=== PATIENT | female | born 1980 | race Caucasian/White ===

== ENCOUNTER → 2020-01-29 08:33 | Outpatient (BNVA) | payer OTHER, SELFPAY | PROVIDERS: Visit Provider Physician Assistant | DX: Z76.89 Persons encountering health services in other specified circumstances (principal) ==

== ENCOUNTER 2020-02-20 10:43 | Day surgery (SDC) | payer OTHER, SELFPAY ==
[2020-02-11 13:07] VITALS: BMI 29.9
--- NOTE | 2020-02-18 11:57 | HO.ANESPROP2 ---
Documented by User: Yumiko Milena 02/18/20 11:59 HPI - Anesthesia Eval Consult details Narrative: 39yo F for Upper Endoscopy [facility] Past Medical History Medical History Chronic fatigue GERD (gastroesophageal reflux disease) Moderate asthma Polyarthralgia Restless leg syndrome Vertigo Family History Family History Paternal Grandfather Colon cancer Paternal Aunt Breast cancer Father No problems noted. Mother No problems noted. Surgical History Surgical History History of section History of tubal ligation Social History Social History Household Members: Spouse and Children Alcohol intake: never Smoking Status: Never smoker Use of substances other than those prescribed or required for medical reasons: No Advance Directives: No Advance Directives Information Provided: No Advance Directives on File: No Meds Allergies Allergy/AdvReac Type Severity Reaction Status Date / Time mustard [MUSTARD*] Allergy Severe PT USES Verified 12/19/19 09:24 EPI PEN seafood Allergy Unknown swollen Verified 12/19/19 09:24 throat SEASONAL ALLERGIES Allergy Severe USES EPI Uncoded 12/19/19 09:24 PEN Home Medications Medication Instructions Recorded Confirmed Type albuterol sulfate mg INHALATION 12/19/19 01/29/20 History epinephrine 0.3 mg/0.3 mL 0.3 mg IM DIRECTED PRN 12/19/19 02/11/20 History injection, auto-injector albuterol sulfate 1 PO Q4H 02/11/20 02/11/20 History Exam Exam Date and Time: February 18, 2020 1157 Height,Weight and Vital Signs: Height 5 ft Weight 69.4 kg Assessment and Plan Assessment Anesthesia Assessment: Chart Reviewed Documented by User: Tha Miller MD 02/20/20 11:30 [facility] Past Medical History Medical History Chronic fatigue GERD (gastroesophageal reflux disease) Moderate asthma Polyarthralgia Restless leg syndrome Vertigo Family History Family History Paternal Grandfather Colon cancer Paternal Aunt Breast cancer Father No problems noted. Mother No problems noted. Surgical History Surgical History History of section History of tubal ligation Social History Social History Household Members: Spouse and Children Alcohol intake: never Smoking Status: Never smoker Use of substances other than those prescribed or required for medical reasons: No Advance Directives: No Advance Directives Information Provided: No Advance Directives on File: No Meds Allergies Allergy/AdvReac Type Severity Reaction Status Date / Time mustard [MUSTARD*] Allergy Severe PT USES Verified 12/19/19 09:24 EPI PEN seafood Allergy Unknown swollen Verified 12/19/19 09:24 throat SEASONAL ALLERGIES Allergy Severe USES EPI Uncoded 12/19/19 09:24 PEN Home Medications Medication Instructions Recorded Confirmed Type albuterol sulfate mg INHALATION 12/19/19 01/29/20 History epinephrine 0.3 mg/0.3 mL 0.3 mg IM DIRECTED PRN 12/19/19 02/11/20 History injection, auto-injector albuterol sulfate 1 PO Q4H 02/11/20 02/11/20 History Exam Airway Mallampati Class: I TM Dist: >3cm Neck ROM: Full Loose/Missing/Broken Teeth: No Heart: RRR Lungs: NL Other: AO Assessment and Plan Assessment Anesthesia Assessment: Anesthesia Plan Discussed and Chart Reviewed Final Anesthetic Review NPO: Yes ASA Class: II Final Preanesthetic Review: No Changes in Pt Med Stat, Meds/Allgs Chart Reviewed, Consent Obtained/Reviewed and Anes Risks/Benef Reviewed Patient Risk: Intermediate Procedure Risk: Low Anesthetic Plan Anesthetic Plan: MAC: Disposition: Standard PACU
[2020-02-20 11:20] VITALS: BP 141/91; PULSE 100; RESP 18; TEMP 36.2; O2SAT 98
[2020-02-20] MEDS: Lactated Ringers 1,000 ML 100 ML IVCONT (11:22)
--- NOTE | 2020-02-20 11:22 | MHC.SHP ---
Pre-Procedural Eval Section B Chief Complaint: Gerd Relevant Family History (Specify if Yes): No Relevant Social History: None Present Medications: see Short Stay Collaborative assessment Medical History: Significant History (Chronic fatigue GERD (gastroesophageal reflux disease) Moderate asthma Polyarthralgia Restless leg syndrome Vertigo) History of Previous Operations: Relevant previous surgery/procedure and date(s) (c section, tubal ligation) Allergies: Allergies Allergy/AdvReac Type Severity Reaction Status Date / Time mustard [MUSTARD*] Allergy Severe PT USES Verified 12/19/19 09:24 EPI PEN seafood Allergy Unknown swollen Verified 12/19/19 09:24 throat SEASONAL ALLERGIES Allergy Severe USES EPI Uncoded 12/19/19 09:24 PEN Review of Systems Sugical H&P ROS: Negative: Constitution, Cardiovascular, Respiratory, Neurological, Psychiatric, Hem-Onc, Allergic/Immunologic, Gastrointestinal, Genitourinary, Musculoskeletal, Integumentary, Endocrine and Eyes/Ears/Nose/Throat Exam Surgical H&P Exam: Normal: HEENT, Normal: Heart, Normal: Lungs, Normal: Extremities, Normal: Abdomen, Normal: Skin and Normal: Neurological Plan Diagnosis/Plan: Unchanged I have reviewed the history and physical and performed a pertinent physical examination on my patient. No changes have occurred unless specified.
--- NOTE | 2020-02-20 11:23 | P.BOP_ITS ---
Brief Operative Note Date of Service: 02/20/20 Pre-op diagnosis: GERD Post-op diagnosis: same Procedure: Procedure Description: EGD FLEXIBLE TRANSORAL UPPER GASTROINTESTINAL ENDOSCOPY UPPER ENDOSCOPY Consent: Indications for the procedure and potential complications of bleeding, perforation, reaction to medications and missed diagnosis were discussed with the patient and informed consent was obtained. Instrument: Olympus GIF H 190 J mid size upper endoscope Monitoring: Vital signs and clinical assessment, continuous EKG monitoring, Pulse oximetry, Carbon Dioxide monitoring and blood pressure monitoring were done throughout the procedure. Procedure: The patient was placed in the left lateral decubitis position and pre-procedure medications were administered and a bite block was placed. The endoscope was inserted into the mouth and advanced under direct vision to the third part of duodenum. A careful inspection was made as the upper endoscope was withdrawn including a retroflexed examination of the proximal stomach; Findings and interventions are described below. Findings: Larynx:normal Esophagus: GE junction at 38 cm, diaphragm hiatus at 38 cm, no varices or esoph agitis. Esophageal inlet patch noted measuring about 1 cm in proximal esophagus, bx taken from GEJ and random esophagus Stomach: Patchy gastric erythema. Biopsies were obtained. Grade 2 flap valve on retroflexed examination of the cardia. Duodenum: Normal bulb and descending duodenum, bx taken Intervention: Biopsies as noted above Impression/Findings: gastritis PLAN: Await path, if H pylori pos then treat there was also a paucity of gastric movement, might need GES if sx persist and path is negative Surgeon: Yon Pitts MD Anesthesia: MAC Estimated blood loss (mL): 0 Condition: stable Disposition: PACU
[2020-02-20 11:27] VITALS: BMI 29.2
[2020-02-20 11:59] VITALS: BP 98/57; PULSE 111; RESP 16; TEMP 35.8; O2SAT 99
[2020-02-20 12:14] VITALS: BP 126/81; PULSE 111; RESP 16; TEMP 35.8; O2SAT 97
--- NOTE | 2020-02-20 12:54 | HO.POSTANES ---
Post Anesthesia Evaluation Post Anesthesia Evaluation Vital Signs: Vital Signs Temp Pulse Resp BP Pulse Ox 02/20/20 12:14 96.4 F L 111 H 16 126/81 97 02/20/20 11:59 96.4 F L 111 H 16 98/57 L 99 02/20/20 11:20 97.1 F 100 18 141/91 H 98 Anesthesia: Monitored Mental Status: Awake Pain Control: Satisfactory Nausea/Vomiting: None Hydration: Adequate Anesthesia-Related Issues: No Anes. Related Issues
== END 2020-02-20 13:09 ==
LOC: HO.SSS 10:44
PROVIDERS: PCP Internal Medicine; Visit Provider Internal Medicine Gastroenterology
PROC: 0DJ08ZZ Inspection of Upper Intestinal Tract, Via Natural or Artificial Opening Endoscopic (ICD-10-PCS; CPT 43235; principal; 2020-02-20 12:10)
DX: K21.9 Gastro-esophageal reflux disease without esophagitis (principal); K29.50 Unspecified chronic gastritis without bleeding; Q39.8 Other congenital malformations of esophagus; K44.9 Diaphragmatic hernia without obstruction or gangrene; J45.909 Unspecified asthma, uncomplicated; R53.82 Chronic fatigue, unspecified; Z79.899 Other long term (current) drug therapy
CPT/HCPCS: 43239; 88305; 88342; J3010

== ENCOUNTER 2020-02-26 10:36 | Outpatient (REF) | payer OTHER, SELFPAY ==
[2020-02-26 11:59] LABS: MANUAL DIFF FLAG NO
[2020-02-26 12:07] LABS: Basophils Percent Auto 0.5 % (0-2); Eosinophils Absolute Auto 0.1 X10*3/uL (0.0-0.4); Eosinophils Percent Auto 1.8 % (0-4); Hematocrit 42.7 % (37-47); Imm Gran Abs Auto 0.01 X10*3/uL (0.00-0.03); Imm Gran Pct Auto 0.2 % (0.0-0.4); Lymphocytes Percent Auto 29.7 % (20-40); Mean Corpuscular HGB Conc 32.8 g/dl (31.0-35.0); Mean Corpuscular Hemoglobin 29.8 pg (27.0-33.0); Mean Corpuscular Volume 90.9 fL (80-98); Mean Platelet Volume 10.5 fL (9.4-12.3); Monocytes Absolute Auto 0.5 X10*3/uL (0.1-1.2); Monocytes Percent Auto 7.1 % (2-11); Neutrophils Percent Auto 60.7 % (45-73); Platelet Count 248 X10*3/uL (160-400); Red Cell Distribution Width 12.6 % (11.0-16.0); White Blood Count 6.6 X10*3/uL (4.8-10.8)
[2020-02-26 12:38] LABS: Alanine Aminotransferase 20 U/L (0-31); Albumin Level 4.4 g/dL (3.5-5.0); Alkaline Phosphatase 87 U/L (39-117); Anion Gap 13 (12-20); Aspartate Amino Transferase 18 U/L (5-31); Bilirubin Total 0.2 mg/dL (0.0-1.0); Blood Urea Nitrogen 10 mg/dL (9-16); Calcium 9.2 mg/dL (8.4-10.2); Carbon Dioxide 25 mmol/L (22-29); Chloride 106 mmol/L (96-108); Estimated Glomerular Filt Rate > 60; Glucose Random 99 mg/dL (60-115); Potassium 5.1 mmol/l (3.3-5.1); Sodium 139 mmol/L (135-145); Total Protein 7.5 g/dL (6.5-8.0)
[2020-02-26 12:45] LABS: HCG Quantitative < 2 mIU/mL
== END 2020-02-26 10:37 | disposition home or self-care (01) ==
LOC: HO.LAB 10:36
PROVIDERS: Physician Assistant; Absent Provider Internal Medicine; PCP Internal Medicine; Visit Provider Internal Medicine Cardiovascular Disease
DX: R07.89 Other chest pain (principal); R00.2 Palpitations; I49.1 Atrial premature depolarization; R10.11 Right upper quadrant pain; K21.9 Gastro-esophageal reflux disease without esophagitis; R06.02 Shortness of breath
CPT/HCPCS: 36415; 80053; 84702; 85025; 93005; 99202

== ENCOUNTER → 2020-03-04 11:53 | Outpatient (BNVA) | payer OTHER, SELFPAY | PROVIDERS: PCP Internal Medicine; Visit Provider Physician Assistant | DX: Z76.89 Persons encountering health services in other specified circumstances (principal) ==

== ENCOUNTER → 2020-04-13 07:51 | Outpatient (REF) | payer OTHER, SELFPAY ==
--- NOTE | ~2020-04-13 | NM_ITS ---
EXAMINATION: VT RADIONUCLIDE SOLID FOOD GASTRIC EMPTYING 4-HOUR STUDY CLINICAL INFORMATION: Gastroesophageal reflux disease without esophagitis. COMPARISON: None TECHNIQUE: A standard meal consisting of 4 oz of Egg Beaters brand tagged with 0.87 millicuries of Tc-99m Sulfur Colloid, 8 oz water and 2 slices of toast with jelly was administered orally to the patient. Images were obtained using a dual head gamma camera in the anterior and posterior projections over of the stomach immediately post ingestion and at hourly intervals up to 4 hours post ingestion. The anterior and posterior counts at each time interval were averaged using the geometric mean and expressed as percentage of the immediate post ingestion counts. FINDINGS: There is good visualization of activity in the stomach immediately post ingestion. As the study progresses, there is good clearance of activity from the stomach and visualization of progressively increasing small bowel activity. By the end of the study, there is almost no retention noted in the stomach. Retention in the stomach at each time interval was: 1 hour 76% (normal 37%-90%) 2 hours 45% (normal 30%-60%) 3 hours 13% 4 hours 4% (normal 0%-10%) VT/VT gastric emptying study IMPRESSION: Normal 4-hour solid food gastric emptying study.
== END ==
LOC: HO.NUCMED 07:51
PROVIDERS: PCP Internal Medicine; Visit Provider Physician Assistant
DX: K21.9 Gastro-esophageal reflux disease without esophagitis (principal)
CPT/HCPCS: 78264; A9541

== ENCOUNTER 2020-04-16 11:22 | Outpatient (REF) | payer OTHER, SELFPAY ==
--- NOTE | ~2020-04-16 | XR_ITS ---
EXAMINATION: XR FOOT, BILATERAL CLINICAL INFORMATION: Pain. COMPARISON: 08/16/2016 TECHNIQUE: Bilateral feet each 3 views. FINDINGS: In bilateral feet, there is normal bone mineralization. No apparent significant arthropathy. No fracture or malalignment. No erosions. No abnormal soft tissue calcification. Small bilateral calcaneal spurs. XR/XR foot RT min 3V IMPRESSION: Small bilateral plantar calcaneal spurring.
--- NOTE | ~2020-04-16 | XR_ITS ---
EXAMINATION: XR HAND, BILATERAL CLINICAL INFORMATION: Pain. COMPARISON: 08/16/2016 TECHNIQUE: Each 3 views. FINDINGS: In bilateral hands, there is normal bone mineralization. No apparent significant arthropathy. Joint spaces are maintained. No erosions or abnormal soft tissue calcification. XR/XR hand RT min 3V IMPRESSION: No significant osseous abnormality.
--- NOTE | ~2020-04-16 | XR_ITS ---
EXAMINATION: XR HAND, BILATERAL CLINICAL INFORMATION: Pain. COMPARISON: 08/16/2016 TECHNIQUE: Each 3 views. FINDINGS: In bilateral hands, there is normal bone mineralization. No apparent significant arthropathy. Joint spaces are maintained. No erosions or abnormal soft tissue calcification. XR/XR hand LT min 3V IMPRESSION: No significant osseous abnormality.
--- NOTE | ~2020-04-16 | XR_ITS ---
EXAMINATION: XR FOOT, BILATERAL CLINICAL INFORMATION: Pain. COMPARISON: 08/16/2016 TECHNIQUE: Bilateral feet each 3 views. FINDINGS: In bilateral feet, there is normal bone mineralization. No apparent significant arthropathy. No fracture or malalignment. No erosions. No abnormal soft tissue calcification. Small bilateral calcaneal spurs. XR/XR foot LT min 3V IMPRESSION: Small bilateral plantar calcaneal spurring.
[2020-04-16 13:01] LABS: MANUAL DIFF FLAG NO
[2020-04-16 13:09] LABS: Basophils Percent Auto 0.3 % (0-2); Eosinophils Absolute Auto 0.1 X10*3/uL (0.0-0.4); Eosinophils Percent Auto 2.2 % (0-4); Hematocrit 42.9 % (37-47); Hemoglobin 14.4 g/dl (12.0-16.0); Imm Gran Abs Auto 0.01 X10*3/uL (0.00-0.03); Imm Gran Pct Auto 0.3 % (0.0-0.4); Lymphocytes Absolute Auto 1.5 X10*3/uL (1.2-4.9); Lymphocytes Percent Auto 45.2 % (20-40); Mean Corpuscular HGB Conc 33.6 g/dl (31.0-35.0); Mean Corpuscular Hemoglobin 30.2 pg (27.0-33.0); Mean Corpuscular Volume 89.9 fL (80-98); Mean Platelet Volume 10.6 fL (9.4-12.3); Monocytes Absolute Auto 0.4 X10*3/uL (0.1-1.2); Monocytes Percent Auto 12.1 % (2-11); Neutrophils Absolute Auto 1.3 X10*3/uL (2.0-8.3); Neutrophils Percent Auto 39.9 % (45-73); Platelet Count 224 X10*3/uL (160-400); Red Blood Count 4.77 X10*6/uL (4.20-5.50); Red Cell Distribution Width 12.7 % (11.0-16.0); White Blood Count 3.2 X10*3/uL (4.8-10.8)
[2020-04-16 13:38] LABS: Albumin Level 4.3 g/dL (3.5-5.0); Anion Gap 13 (12-20); Aspartate Amino Transferase 36 U/L (5-31); Bilirubin Total 0.5 mg/dL (0.0-1.0); Blood Urea Nitrogen 7 mg/dL (9-16); Calcium 9.1 mg/dL (8.4-10.2); Carbon Dioxide 26 mmol/L (22-29); Chloride 106 mmol/L (96-108); Estimated Glomerular Filt Rate > 60; Glucose Random 87 mg/dL (60-115); Potassium 4.2 mmol/L (3.3-5.1); Sodium 141 mmol/L (135-145); Total Protein 7.6 g/dL (6.5-8.0)
[2020-04-16 13:50] LABS: Thyroid Stimulating Hormone 0.58 uIU/mL (0.32-4.0)
[2020-04-16 13:58] LABS: Erythrocyte Sedimentation Rate 10 MM/HR (0-20)
[2020-04-16 14:03] LABS: Alanine Aminotransferase 35 U/L (0-31); Alkaline Phosphatase 95 U/L (39-117); C Reactive Protein 0.85 mg/dL (< or = 0.50)
[2020-04-16 14:06] LABS: Glucose Urine UA NEG (NEG); Leukocyte Esterase Urine NEG (NEG); Nitrite Urine NEG (NEG); Urine Blood TRACE (NEG); Urine Ketones NEG (NEG); Urine Protein NEG (NEG-TRACE)
[2020-04-16 14:18] LABS: Appearance Urine HAZY; Color Urine YELLOW
[2020-04-16 14:23] LABS: RBC Urine 0-2 /HPF (0); Squamous Epithelial Cell Urine 1+ /LPF; WBC Urine 0-2 /HPF (0-4)
[2020-04-16 14:24] LABS: Bacteria Urine 2+ /LPF; Mucus Urine 1+ /LPF
[2020-04-17 06:06] LABS: Thyroglobulin Antibodies <1 IU/mL (< or = 1); Thyroid Peroxidase Antibodies <1 IU/mL (<9)
[2020-04-17 12:52] LABS: Anti DNA DS Antibody <1 IU/mL; Antibody to SS-A Antigen <1.0 NEG AI (<1.0 NEG); Antibody to SS-B Antigen <1.0 NEG AI (<1.0 NEG); Scleroderma 70 Antibody <1.0 NEG AI (<1.0 NEG)
[2020-04-18 14:32] LABS: Complement C3 112 mg/dL (83-193)
== END 2020-04-16 11:23 | disposition home or self-care (01) ==
LOC: HO.LAB 11:22
PROVIDERS: PCP Internal Medicine; Visit Provider Student in an Organized Health Care Education/Training Program
DX: M25.50 Pain in unspecified joint (principal); M79.10 Myalgia, unspecified site; R76.8 Other specified abnormal immunological findings in serum; Z79.899 Other long term (current) drug therapy
CPT/HCPCS: 36415; 73130; 73630; 80053; 81001; 84443; 85025; 85652; 86140; 86160; 86225; 86235; 86376; 86800; 99202

== ENCOUNTER 2020-04-22 10:44 | Outpatient (REF) | payer OTHER, SELFPAY | END 2020-04-22 10:45 | disposition home or self-care (01) | LOC: HO.LAB 10:44 | PROVIDERS: Visit Provider Internal Medicine | DX: Z20.822 Contact with and (suspected) exposure to COVID-19 (principal) | CPT/HCPCS: 36415; C9803; U0003; U0005 ==

== ENCOUNTER 2020-05-01 13:09 | Outpatient (REF) | payer OTHER, SELFPAY | END 2020-05-01 13:10 | disposition home or self-care (01) | LOC: HO.LAB 13:09 | PROVIDERS: Visit Provider Internal Medicine | DX: Z20.822 Contact with and (suspected) exposure to COVID-19 (principal) | CPT/HCPCS: 36415; C9803; U0003; U0005 ==

== ENCOUNTER → 2020-05-05 08:10 | Outpatient (REF) | payer OTHER, SELFPAY ==
--- NOTE | 2020-05-05 08:12 | CA_ITS ---
Acquisition Time: 2020-05-05 09:17:20 Total Exercise Time: 00:05:09 Test Indications: Dyspnea Medications: ALBUTEROL MECLIZINE OMEPRAZOLE SINGULAIR CARAFATE Protocol: UTE Max HR: 164 BPM 91% of Pred: 180 BPM Max BP: 134/080 mmHG Max Work Load: 7.0 METS Exercise stress test using Ute protocol, total of 5 min 9 sec. Pt beacame fatigued and dizzy and test terminated. METS 7.0 and TAPHR up to 91 %. EKG with PAC's, flatten T waves laterally and anteriorly after exercise in recovery. Pt reported pinching like chest discomfort at peak exercise that resolved in recovery. Normotensive response to exercise. Test reviewed with Dr. Urrutia. EKG in recovery shows irregular rhythm with this appearing P-waves, patient feeling dizzy patient has Holter ordered, will be applied today Referred By: Kameron Urrutia Overread By: Jemima Hendrix NP
--- NOTE | 2020-05-05 08:12 | CA_ITS ---
Transthoracic Echocardiogram Patient (Last, First, Middle): Mary Jane Swan, Gender: Female Date of : 1980 Age: 39 Procedure Date: 05/05/2020 Procedure Type: Transthoracic Echocardiogram Location: OP Height: 152.4 cm Weight: 69.4 kg BSA: 1.67 m2 Heart Rate: bpm BP: 149 / 90 mmHg Vending Machine Collector: MARGARETTE Referring MD: Kameron Urrutia MD [employer] Consultant: Kameron Urrutia MD Symptoms: R07.89 - Other chest pain Study Quality: Fair ECG Rhythm: Sinus Conclusions: - Essentially normal study Findings Left Ventricle Normal left ventricular size, thickness, and systolic function. The visually estimated ejection fraction is between 60-65%. Diastolic function is normal for age. Right Ventricle Normal right ventricular cavity size and systolic function. Atria Both atria are normal in size. Interatrial shunt cannot be excluded. Aortic Valve Normal aortic valve structure and function. There is no aortic valve stenosis. There is no aortic valve regurgitation. Mitral Valve Normal mitral valve structure and function. There is trace mitral valve regurgitation. There is no mitral valve stenosis. Pulmonic Valve The pulmonic valve was not well visualized. Tricuspid Valve Likely normal tricuspid valve structure and function. There is trace tricuspid valve regurgitation. The right ventricular systolic pressure is normal. The right ventricular systolic pressure is 20 mmHg. Normal right atrial pressure. There is no evidence of pulmonary hypertension. Great Vessels All visible segments of the aorta are normal in size. The pulmonary artery was not well visualized. Venous The inferior vena cava is normal in size and collapses greater than 50% with inspiration. Pericardium/Pleural There is no evidence of pericardial effusion. Prior Study Comparison No prior study available for comparison. Measurements 2D Linear Measurements IVSd: 0.88 0.6-0.9/0.6-1.0 cm LVIDd: 4.00 3.9-5.3/4.2-5.9 cm LVIDs: 2.80 2.0-3.6 cm LVPWd: 1.00 0.7-1.1 cm Ao Root: 2.38 2.1-3.5 cm LV Mass: 144.41 67-162/88-224 g LVOT Diam: 1.72 3.0+(-)1.3 cm 2D Systolic Function EF 2C: 64.00 >55% Mitral Valve MV Pk E: 0.82 MV PK A: 0.63 MV Decel Time: 130.45 E/A: 1.29 E'Medial: 0.12 E/E' Med: 0.11 Decel Pima: 6.28 Aortic Valve AoV Pk Junior: 1.26 AoV Pk Grad: 6.32 LVOT LVOT Pk Junior: 1.10 LVOT Mn Junior: 0.69 LVOT VTI: 0.19 LVOT Pk Grad: 4.86 LVOT Mn Grad: 2.14 LVOT Diam: 1.72 LVOT Area: 2.32 Diastolic Function MV Pk E: 0.82 MV Pk A: 0.63 E/A: 1.29 E'Medial: 0.12 E/E' Med: 0.11 Tricuspid Valve TR Pk Junior: 2.10 TR Pk Grad: 17.61 RA Press: 3.00 RVSP: 20.00 Great Vessels Aorta Ao Root-2D: 2.38 2.0-3.7 cm Updated in Other Vendor System with Status of Final Kameron Urrutia MD electronically signed on 05/06/2020 5:34:05 PM with status of Final
--- NOTE | 2020-05-05 09:00 | ECG_ITS ---
Hook-up date: 2020-05-05 10:35:00 Duration: 28:16:00 Test Indications: PAC'S, PALPS Medications: [id number] QRS complexes 2 Ventricular ectopics which represent <1 % of total QRS comp. 545 Supraventricular ectopics which represent <1 % of total QRS comp. * Paced QRS complexs which represent % of total QRS comp. VENTRICULAR ECTOPY 2 Isolated 0 Bigeminal Cycles 0 Couplets 0 Runs 0 Beats in Runs * Beats LONGEST at * BPM at :: -- * Beats FASTEST at * BPM at :: -- SUPRAVENTRICULAR ECTOPY 509 Isolated 18 Couplets 0 Runs 0 Beats in Runs * Beats LONGEST at * BPM at :: -- * Beats FASTEST at * BPM at :: -- HEART RATES 65 MIN at 08:42:30 2020-05-06 97 AVG 155 MAX at 11:12:10 2020-05-05 LONGEST RR 1.0560 secs at 00:00:17 2020-05-06 S-T LEVELS Channel 1 - 128 mm at 10:35:00 2020-05-05 - 128 mm at 10:35:00 2020-05-05 Channel 2 - 128 mm at 10:35:00 2020-05-05 - 128 mm at 10:35:00 2020-05-05 Channel 3 - 128 mm at 02:95:41 -- - 128 mm at 02:95:41 Underlying rhythm is sinus; Average ventricular rate 97/min; range 65-155/min; About 46% of the time, ventricular rate >100/min; Occasional PACs; no significant runs; Rare PVC; pressure in chest' in diary but no correlating findings. Referred By: Kameron Urrutia Overread By: DONATO MUNIZ
[2020-05-05 10:36] LABS: MANUAL DIFF FLAG NO
[2020-05-05 10:39] LABS: Basophils Percent Auto 0.4 % (0-2); Eosinophils Absolute Auto 0.2 X10*3/uL (0.0-0.4); Eosinophils Percent Auto 2.6 % (0-4); Hematocrit 41.3 % (37-47); Imm Gran Abs Auto 0.02 X10*3/uL (0.00-0.03); Imm Gran Pct Auto 0.3 % (0.0-0.4); Lymphocytes Absolute Auto 2.3 X10*3/uL (1.2-4.9); Lymphocytes Percent Auto 33.9 % (20-40); Mean Corpuscular HGB Conc 33.9 g/dl (31.0-35.0); Mean Corpuscular Hemoglobin 30.6 pg (27.0-33.0); Mean Corpuscular Volume 90.2 fL (80-98); Mean Platelet Volume 10.6 fL (9.4-12.3); Monocytes Absolute Auto 0.5 X10*3/uL (0.1-1.2); Monocytes Percent Auto 7.6 % (2-11); Neutrophils Absolute Auto 3.8 X10*3/uL (2.0-8.3); Neutrophils Percent Auto 55.2 % (45-73); Platelet Count 239 X10*3/uL (160-400); Red Blood Count 4.58 X10*6/uL (4.20-5.50); Red Cell Distribution Width 12.9 % (11.0-16.0); White Blood Count 6.8 X10*3/uL (4.8-10.8)
[2020-05-05 11:05] LABS: Glucose Urine UA NEG (NEG); Leukocyte Esterase Urine TRACE (NEG); Nitrite Urine NEG (NEG); Urine Blood NEG (NEG); Urine Ketones NEG (NEG); Urine Protein NEG (NEG-TRACE)
[2020-05-05 11:08] LABS: Appearance Urine CLEAR; Color Urine YELLOW
[2020-05-05 11:26] LABS: Alanine Aminotransferase 37 U/L (0-31); Albumin Level 4.3 g/dL (3.5-5.0); Alkaline Phosphatase 81 U/L (39-117); Anion Gap 12 (12-20); Aspartate Amino Transferase 32 U/L (5-31); Bilirubin Direct 0.2 mg/dL (0.0-0.5); Bilirubin Total 0.9 mg/dL (0.0-1.0); Blood Urea Nitrogen 8 mg/dL (9-16); Calcium 9.2 mg/dL (8.4-10.2); Carbon Dioxide 26 mmol/L (22-29); Chloride 105 mmol/L (96-108); Estimated Glomerular Filt Rate > 60; Glucose Fasting 102 mg/dL (60-99); Potassium 4.3 mmol/L (3.3-5.1); Sodium 139 mmol/L (135-145); Total Protein 7.5 g/dL (6.5-8.0)
[2020-05-05 11:43] LABS: Folate 12.6 ng/mL (> or = 4.0); Vitamin B12 334 pg/mL (200-900)
[2020-05-05 11:46] LABS: Bacteria Urine 1+ /LPF; Mucus Urine 1+ /LPF; Squamous Epithelial Cell Urine 2+ /LPF
[2020-05-09 13:26] LABS: Vitamin D 25-OH, D2 <4 ng/mL; Vitamin D 25-OH, D3 19 ng/mL; Vitamin D 25-OH, Total 19 ng/mL (30-100)
== END ==
LOC: HO.CARD 08:10
PROVIDERS: Student in an Organized Health Care Education/Training Program; PCP Internal Medicine; Visit Provider Internal Medicine Cardiovascular Disease
DX: R07.89 Other chest pain (principal); R00.2 Palpitations; I49.1 Atrial premature depolarization; E55.9 Vitamin D deficiency, unspecified; R74.01 Elevation of levels of liver transaminase levels; R53.82 Chronic fatigue, unspecified; M25.50 Pain in unspecified joint
CPT/HCPCS: 36415; 80053; 80076; 81001; 82306; 82607; 82746; 85025; 93016; 93017; 93018; 93225; 93226; 93306

== ENCOUNTER → 2020-05-06 14:09 | Outpatient (BNVA) | payer OTHER, SELFPAY | PROVIDERS: PCP Internal Medicine; Visit Provider Student in an Organized Health Care Education/Training Program | DX: R76.8 Other specified abnormal immunological findings in serum (principal) | CPT/HCPCS: 99212 ==

== ENCOUNTER → 2020-05-18 10:21 | Outpatient (BNVA) | payer OTHER, SELFPAY | PROVIDERS: PCP Internal Medicine; Visit Provider Nurse Practitioner Family | DX: R07.89 Other chest pain (principal); I10 Essential (primary) hypertension; R94.31 Abnormal electrocardiogram [ECG] [EKG] | CPT/HCPCS: 99212 ==

== ENCOUNTER 2020-05-24 10:56 | Emergency (ER) | payer OTHER, SELFPAY ==
--- NOTE | ~2020-05-24 | US_ITS ---
EXAMINATION: US ABDOMEN LIMITED CLINICAL INFORMATION: Right upper quadrant pain. COMPARISON: CT abdomen pelvis earlier today TECHNIQUE: Real-time imaging of the right upper quadrant abdominal viscera. FINDINGS: PANCREAS: Normal. LIVER: The liver is normal in size. The liver contour is normal. There is diffuse increased liver parenchymal echogenicity, consistent with hepatic steatosis. No focal hepatic lesion. There is no intrahepatic biliary duct dilatation seen. GALLBLADDER: The gallbladder is physiologically distended without evidence of stones, sludge, polyps, wall thickening or pericholecystic fluid. COMMON BILE DUCT: Normal in caliber measuring 0.2 cm in diameter. RIGHT KIDNEY: Normal. No hydronephrosis. No renal calculi or focal parenchymal lesions. The kidney measures 10.3 cm in maximum dimension. FREE FLUID: None. US/US abdomen limited IMPRESSION: A cause for the patient's right upper quadrant pain has not been found. Incidental note made of hepatic steatosis.
--- NOTE | ~2020-05-24 | CT_ITS ---
EXAMINATION: CT ABDOMEN AND PELVIS WITHOUT CONTRAST CLINICAL INFORMATION: Right flank pain. Hematuria. Rule out renal colic COMPARISON: None. TECHNIQUE: Multidetector volumetric imaging was performed from the lung bases through the pubic symphysis. Sagittal and coronal reformatted images were obtained on the technologist workstation. This CT examination was performed using dose optimization techniques as appropriate, variously including the following: *Automated exposure control *Adjustment of mA and/or kV according to patient size (this includes techniques or standardized protocols for targeted exams where dose is matched to indication/reason for exam; i.e. extremities or head) *Use of iterative reconstruction technique Total exam dose-length product 507 mGy-cm FINDINGS: The lack of intravenous contrast limits evaluation of the solid visceral organs including the liver, spleen, pancreas, and kidneys. LUNG BASES: The visualized lung bases are unremarkable. LIVER, GALLBLADDER, AND BILIARY TREE: Liver is diffusely hypoattenuating relative to the spleen consistent with diffuse hepatic steatosis. No concerning focal lesion seen. No biliary ductal dilatation. The gallbladder is unremarkable with no evidence of radiopaque gallstones, gallbladder wall thickening, or obvious pericholecystic inflammatory changes. PANCREAS: Limited non-contrast evaluation is normal. No shantal-pancreatic fluid. SPLEEN: Limited non-contrast evaluation is normal. ADRENAL GLANDS: Normal; no adrenal mass. KIDNEYS AND URETERS: 4 mm left mid renal calculus. No right renal calculi. No hydroureter or hydronephrosis. No solid mass appreciable on noncontrast images. GASTROINTESTINAL TRACT: Stomach and small bowel are nondilated. Normal appendix. Scattered colonic diverticulosis without evidence of colitis or diverticulitis. ABDOMINAL WALL: No hernia seen. LYMPH NODES: No pathologically enlarged lymph nodes in the abdomen or pelvis. VASCULAR: Normal caliber abdominal aorta. BLADDER: No calculi or wall thickening. PELVIC VISCERA: Bilateral tubal ligation clips. Normal CT appearance of the uterus and ovaries for age. OSSEOUS STRUCTURES: There is a limbus vertebra configuration of L2. No acute or suspicious osseous abnormality. CT/CT abdomen pelvis wo con IMPRESSION: No acute CT findings. There is a nonobstructing 4 mm left mid renal calculus. No evidence of hydronephrosis or hydroureter. Likely diffuse hepatic steatosis.
[2020-05-24 11:04] VITALS: BP 138/89; PULSE 111; RESP 16; TEMP 36.6; O2SAT 98; BMI 29.9
[2020-05-24 11:50] LABS: Glucose Urine UA NEG (NEG); Leukocyte Esterase Urine NEG (NEG); Nitrite Urine NEG (NEG); PH 6.5 (5.0-8.0); Urine Blood 3+ (NEG); Urine Ketones NEG (NEG); Urine Protein NEG (NEG-TRACE)
[2020-05-24 12:05] LABS: Color Urine YELLOW
[2020-05-24 12:06] LABS: Appearance Urine HAZY
[2020-05-24 12:07] LABS: UPreg QC Valid YES; Urine Pregnancy NEGATIVE (NEGATIVE)
[2020-05-24 12:08] LABS: Bacteria Urine 1+ /LPF; Mucus Urine 2+ /LPF; RBC Urine 0-2 /HPF (0); Squamous Epithelial Cell Urine 2+ /LPF; WBC Urine 0-2 /HPF (0-4)
[2020-05-24 12:49] LABS: MANUAL DIFF FLAG NO
[2020-05-24 12:51] LABS: Basophils Percent Auto 0.4 % (0-2); Eosinophils Absolute Auto 0.1 X10*3/uL (0.0-0.4); Eosinophils Percent Auto 1.7 % (0-4); Hematocrit 42.3 % (37-47); Hemoglobin 14.4 g/dl (12.0-16.0); Imm Gran Abs Auto 0.01 X10*3/uL (0.00-0.03); Imm Gran Pct Auto 0.1 % (0.0-0.4); Lymphocytes Percent Auto 27.3 % (20-40); Mean Corpuscular Hemoglobin 30.4 pg (27.0-33.0); Mean Corpuscular Volume 89.2 fL (80-98); Mean Platelet Volume 10.5 fL (9.4-12.3); Monocytes Absolute Auto 0.5 X10*3/uL (0.1-1.2); Monocytes Percent Auto 6.5 % (2-11); Neutrophils Absolute Auto 4.6 X10*3/uL (2.0-8.3); Platelet Count 259 X10*3/uL (160-400); Red Blood Count 4.74 X10*6/uL (4.20-5.50); Red Cell Distribution Width 12.6 % (11.0-16.0); White Blood Count 7.2 X10*3/uL (4.8-10.8)
[2020-05-24 13:10] LABS: Alanine Aminotransferase 45 U/L (0-31); Albumin Level 4.5 g/dL (3.5-5.0); Alkaline Phosphatase 87 U/L (39-117); Anion Gap 14 (12-20); Aspartate Amino Transferase 37 U/L (5-31); Bilirubin Direct 0.3 mg/dL (0.0-0.5); Bilirubin Total 0.6 mg/dL (0.0-1.0); Blood Urea Nitrogen 10 mg/dL (9-16); Calcium 9.4 mg/dL (8.4-10.2); Carbon Dioxide 28 mmol/L (22-29); Chloride 101 mmol/L (96-108); Creatinine Clr Calc Pharmacy 86.6; Estimated Glomerular Filt Rate > 60; Glucose Random 95 mg/dL (60-115); Lipase 22 U/L (8-78); Potassium 4.2 mmol/L (3.3-5.1); Sodium 139 mmol/L (135-145); Total Protein 7.8 g/dL (6.5-8.0)
--- NOTE | 2020-05-24 15:15 | ED.ABDPAIN ---
HPI - Abdominal Pain General Chief Complaint: Abdominal Pain Stated Complaint: BACK PAIN Time Seen by Provider: 05/24/20 15:13 Source: patient and heavy equipment technician Mode of arrival: ambulatory Limitations: language barrier History of Present Illness HPI narrative: 39-year-old female with a past medical history of hypertension, GERD, asthma, PACs, poly arthralgia, RLS, vertigo here with complaints of right flank pain which radiates to the right upper abdomen times 24 hours. No nausea, vomiting, diarrhea, urinary symptoms, fevers, chills. Last menstrual cycle 5 days ago Related Data Home Medications Medication Instructions Recorded Confirmed albuterol sulfate mg INHALATION 12/19/19 05/18/20 epinephrine 0.3 mg/0.3 mL 0.3 mg IM DIRECTED PRN 12/19/19 05/18/20 injection, auto-injector Previous Rx's Medication Instructions Recorded meclizine 25 mg tablet 25 mg PO TID PRN 30 Days #90 tab 01/29/20 montelukast 10 mg tablet 10 mg PO BEDTIME #30 tab 01/29/20 ropinirole 0.25 mg tablet 0.25 mg PO BEDTIME #30 tab 01/29/20 albuterol sulfate 90 mcg/actuation 2 puff INHALATION Q6H PRN 30 Days 04/23/20 aerosol inhaler #8.5 g hydrochlorothiazide 12.5 mg tablet 12.5 mg PO DAILY 90 Days #90 tab 04/23/20 omeprazole 20 mg capsule,delayed 20 mg PO DAILY #30 cap 05/04/20 release Allergies Allergy/AdvReac Type Severity Reaction Status Date / Time mustard [MUSTARD*] Allergy Severe PT USES Verified 05/06/20 14:17 EPI PEN seafood Allergy Unknown swollen Verified 05/06/20 14:17 throat SEASONAL ALLERGIES Allergy Severe USES EPI Uncoded 04/23/20 10:12 PEN Review of Systems Review of Systems Yes all other systems are reviewed and are negative Constitutional: Reports no additional constitutional complaints, Denies body ache(s), Denies chills, Denies fever(s), Denies headache(s) and Denies weakness Eyes: Reports no additional eye complaints and Denies change in vision Reports system reviewed and no additional complaints, except as documented, Denies dizziness, Denies headache(s), Denies nasal congestion, Denies nasal discharge and Denies neck pain Cardiovascular: Reports no additional cardiovascular complaints, Denies chest pain, Denies leg edema and Denies dyspnea Respiratory: Reports no additional respiratory complaints, Denies cough and Denies dyspnea Gastrointestinal: Reports no additional gastrointestinal complaints, Reports abdominal pain, Denies diarrhea, Denies nausea and Denies vomiting Genitourinary: Reports no additional female genitourinary complaints and Denies urinary incontinence Musculoskeletal: Reports no additional musculoskeletal complaints, Reports back pain, Denies arthralgias, Denies joint swelling, Denies neck pain, Denies numbness and Denies tingling Skin/Breast: Reports system reviewed and no additional complaints, except as docu and Denies rash Reports system reviewed and no additional complaints, except as documented, Denies Abnormal speech present, Denies dizziness, Denies headache(s), Denies numbness, Denies tingling and Denies weakness Physical Exam Vital Signs: Vital Signs: Last Vital Signs Temp 97.9 F 05/24/20 15:17 Pulse 107 H 05/24/20 15:17 Resp 18 05/24/20 16:00 BP 143/90 H 05/24/20 15:17 Pulse Ox 98 05/24/20 15:17 Body Mass Index 29.9 Const: General: cooperative, healthy appearing, comfortable and no acute distress Orientation/consciousness: patient oriented x3 Limitations: no limitations HENMT: Head: Yes normal to inspection Ears: hearing grossly normal bilaterally General nose exam: Normal external nose present Face and sinus: Yes normal facial exam Mouth: Normal oral and palatal mucosa present Throat: Yes posterior oropharynx normal Eyes: General: appearance normal, both eyes and all related structures Pupils: Equal, round and reactive pupils present Neck: Neck: Yes normal visual inspection Chest: Chest palpation & inspection: normal inspection of the chest Resp: Effort & Inspection: normal respiratory effort Auscultation: clear to auscultation bilaterally Cardio: Rate: regular rate Rhythm: regular rhythm Peripheral pulses: Peripheral pulses 2+ throughout GI: Inspection: Yes normal to inspection Palpation (GI): Soft to palpation and Tenderness to palpation present (GI) (Mild right upper quadrant with no rebound or guarding) Auscultation: normal bowel sounds : General: Yes CVA tenderness (Mild right) Back/Spine/Pelvis: Back: CVA tenderness (Mild right) Thoracic/Lumbar Spine: thoracic and lumbar spine normal to inspection Skin: General skin exam: no rashes or lesions noted Neuro: General: patient oriented x3, no focal motor deficits and normal sensation to monofilament Cranial nerves: Yes Equal, round and reactive pupils present Cognition (Neuro): normal cognition Speech: No Abnormal speech present Gait exam (Neuro): Normal gait present Motor exam (neuro): 5/5 motor strength present throughout Extrem: General: Yes normal to inspection Course Course Course Narrative: 39-year-old female here with right flank pain which radiates to the right upper quadrant times 24 hours. No other associated symptoms. UA shows 3+ blood with no signs of infection. Labs are unremarkable. Consider renal colic versus cholecystitis. Will start with CT A/P. 1630-Ct A/P negative for underlying pathology. Continued pain in RUQ. Will check abdominal US to r/o acute cholecystitis. 1700-Sign out Ok BURGESS pending above. MDM - Abdominal Pain MDM Narrative Medical decision making narrative: Cholecystitis, renal colic, pyelonephritis Medical Records Attestation: I reviewed the patient's medical records. Lab Data Attestation: I reviewed the patient's lab results. Result diagrams: 05/24/20 12:22 05/24/20 12:22 Labs: Lab Results 05/24/20 05/24/20 05/24/20 Range/Units 11:23 11:23 12:22 WBC 7.2 (4.8-10.8) X10*3/uL RBC 4.74 (4.20-5.50) X10*6/uL Hgb 14.4 (12.0-16.0) g/dl Hct 42.3 (37-47) % MCV 89.2 (80-98) fL MCH 30.4 (27.0-33.0) pg MCHC 34.0 (31.0-35.0) g/dl RDW 12.6 (11.0-16.0) % Plt Count 259 (160-400) X10*3/uL MPV 10.5 (9.4-12.3) fL Immature Gran % (Auto) 0.1 (0.0-0.4) % Neut % (Auto) 64.0 (45-73) % Lymph % (Auto) 27.3 (20-40) % [place] % (Auto) 6.5 (2-11) % Eos % (Auto) 1.7 (0-4) % Baso % (Auto) 0.4 (0-2) % Lymph # (Auto) 2.0 (1.2-4.9) X10*3/uL [place] # (Auto) 0.5 (0.1-1.2) X10*3/uL Eos # (Auto) 0.1 (0.0-0.4) X10*3/uL Baso # (Auto) 0.0 (0.0-0.2) X10*3/uL Abs Immat Gran (auto) 0.01 (0.00-0.03) X10*3/uL Absolute Neuts (auto) 4.6 (2.0-8.3) X10*3/uL Absolute Nucleated RBC 0.000 (0.0-0.012) X10*3/uL Nucleated RBC % (auto) 0.0 (0.0-0.2) /100WBC Hold Blue Top Sodium (135-145) mmol/L Potassium (3.3-5.1) mmol/L Chloride (96-108) mmol/L Carbon Dioxide (22-29) mmol/L Anion Gap (12-20) BUN (9-16) mg/dL Creatinine (0.5-1.4) mg/dL Estim Creat Clear Calc Estimated GFR Random Glucose (60-115) mg/dL Calcium (8.4-10.2) mg/dL Total Bilirubin (0.0-1.0) mg/dL Direct Bilirubin (0.0-0.5) mg/dL AST (5-31) U/L ALT (0-31) U/L Alkaline Phosphatase (39-117) U/L Total Protein (6.5-8.0) g/dL Albumin (3.5-5.0) g/dL Lipase (8-78) U/L Urine Color YELLOW Urine Appearance HAZY Urine pH 6.5 (5.0-8.0) Ur Specific [place] 1.020 (1.005-1.025) Urine Protein NEG (NEG-TRACE) MG/DL Urine Glucose (UA) NEG (NEG) MG/DL Urine Ketones NEG (NEG) MG/DL Urine Blood 3+ H (NEG) Urine Nitrite NEG (NEG) Ur Leukocyte Esterase NEG (NEG) Urine RBC 0-2 (0) /HPF Urine WBC 0-2 (0-4) /HPF Ur Squamous Epith Cells 2+ /LPF Urine Bacteria 1+ /LPF Urine Mucus 2+ /LPF Urine Test NEGATIVE (NEGATIVE) 05/24/20 05/24/20 Range/Units 12:22 12:22 WBC (4.8-10.8) X10*3/uL RBC (4.20-5.50) X10*6/uL Hgb (12.0-16.0) g/dl Hct (37-47) % MCV (80-98) fL MCH (27.0-33.0) pg MCHC (31.0-35.0) g/dl RDW (11.0-16.0) % Plt Count (160-400) X10*3/uL MPV (9.4-12.3) fL Immature Gran % (Auto) (0.0-0.4) % Neut % (Auto) (45-73) % Lymph % (Auto) (20-40) % [place] % (Auto) (2-11) % Eos % (Auto) (0-4) % Baso % (Auto) (0-2) % Lymph # (Auto) (1.2-4.9) X10*3/uL [place] # (Auto) (0.1-1.2) X10*3/uL Eos # (Auto) (0.0-0.4) X10*3/uL Baso # (Auto) (0.0-0.2) X10*3/uL Abs Immat Gran (auto) (0.00-0.03) X10*3/uL Absolute Neuts (auto) (2.0-8.3) X10*3/uL Absolute Nucleated RBC (0.0-0.012) X10*3/uL Nucleated RBC % (auto) (0.0-0.2) /100WBC Hold Blue Top SEE NOTE Sodium 139 (135-145) mmol/L Potassium 4.2 (3.3-5.1) mmol/L Chloride 101 (96-108) mmol/L Carbon Dioxide 28 (22-29) mmol/L Anion Gap 14 (12-20) BUN 10 (9-16) mg/dL Creatinine 0.75 (0.5-1.4) mg/dL Estim Creat Clear Calc 86.6 Estimated GFR > 60 Random Glucose 95 (60-115) mg/dL Calcium 9.4 (8.4-10.2) mg/dL Total Bilirubin 0.6 (0.0-1.0) mg/dL Direct Bilirubin 0.3 (0.0-0.5) mg/dL AST 37 H (5-31) U/L ALT 45 H (0-31) U/L Alkaline Phosphatase 87 (39-117) U/L Total Protein 7.8 (6.5-8.0) g/dL Albumin 4.5 (3.5-5.0) g/dL Lipase 22 (8-78) U/L Urine Color Urine Appearance Urine pH (5.0-8.0) Ur Specific [place] (1.005-1.025) Urine Protein (NEG-TRACE) MG/DL Urine Glucose (UA) (NEG) MG/DL Urine Ketones (NEG) MG/DL Urine Blood (NEG) Urine Nitrite (NEG) Ur Leukocyte Esterase (NEG) Urine RBC (0) /HPF Urine WBC (0-4) /HPF Ur Squamous Epith Cells /LPF Urine Bacteria /LPF Urine Mucus /LPF Urine Test (NEGATIVE) Imaging Data CT scan - abdomen: Attestation: I personally reviewed and interpreted this imaging study as follows: Radiologist's impression: EXAMINATION: CT ABDOMEN AND PELVIS WITHOUT CONTRAST CLINICAL INFORMATION: Right flank pain. Hematuria. Rule out renal colic COMPARISON: None. TECHNIQUE: Multidetector volumetric imaging was performed from the lung bases through the pubic symphysis. Sagittal and coronal reformatted images were obtained on the technologist workstation. This CT examination was performed using dose optimization techniques as appropriate, variously including the following: *Automated exposure control *Adjustment of mA and/or kV according to patient size (this includes techniques or standardized protocols for targeted exams where dose is matched to indication/reason for exam; i.e. extremities or head) *Use of iterative reconstruction technique Total exam dose-length product 507 mGy-cm FINDINGS: The lack of intravenous contrast limits evaluation of the solid visceral organs including the liver, spleen, pancreas, and kidneys. LUNG BASES: The visualized lung bases are unremarkable. LIVER, GALLBLADDER, AND BILIARY TREE: Liver is diffusely hypoattenuating relative to the spleen consistent with diffuse hepatic steatosis. No concerning focal lesion seen. No biliary ductal dilatation. The gallbladder is unremarkable with no evidence of radiopaque gallstones, gallbladder wall thickening, or obvious pericholecystic inflammatory changes. PANCREAS: Limited non-contrast evaluation is normal. No shantal-pancreatic fluid. SPLEEN: Limited non-contrast evaluation is normal. ADRENAL GLANDS: Normal; no adrenal mass. KIDNEYS AND URETERS: 4 mm left mid renal calculus. No right renal calculi. No hydroureter or hydronephrosis. No solid mass appreciable on noncontrast images. GASTROINTESTINAL TRACT: Stomach and small bowel are nondilated. Normal appendix. Scattered colonic diverticulosis without evidence of colitis or diverticulitis. ABDOMINAL WALL: No hernia seen. LYMPH NODES: No pathologically enlarged lymph nodes in the abdomen or pelvis. VASCULAR: Normal caliber abdominal aorta. BLADDER: No calculi or wall thickening. PELVIC VISCERA: Bilateral tubal ligation clips. Normal CT appearance of the uterus and ovaries for age. OSSEOUS STRUCTURES: There is a limbus vertebra configuration of L2. No acute or suspicious osseous abnormality. CT/CT abdomen pelvis wo con IMPRESSION: No acute CT findings. There is a nonobstructing 4 mm left mid renal calculus. No evidence of hydronephrosis or hydroureter. Likely diffuse hepatic steatosis. Discharge Plan Discharge Prescriptions: No Action meclizine 25 mg tablet 25 mg PO TID PRN (Reason: dizziness) 30 Days Qty: 90 RF: 6 montelukast 10 mg tablet 10 mg PO BEDTIME Qty: 30 RF: 11 ropinirole 0.25 mg tablet 0.25 mg PO BEDTIME Qty: 30 RF: 4 omeprazole 20 mg capsule,delayed release(DR/EC) 20 mg PO DAILY Qty: 30 RF: 5 albuterol sulfate [ProAir HFA] 90 mcg/actuation HFA aerosol inhaler 2 puff inhalation Q6H PRN (Reason: shortness of breath or wheezing) 30 Days Qty: 8.5 RF: 6 hydrochlorothiazide 12.5 mg tablet 12.5 mg PO DAILY 90 Days Qty: 90 RF: 3 albuterol sulfate 2.5 mg /3 mL (0.083 %) solution for nebulization inhalation RF: 0 epinephrine 0.3 mg/0.3 mL auto-injector 0.3 mg IM DIRECTED PRN (Reason: Anaphylaxis) RF: 0 PMFSH Past Medical History Attestation statement: The following information was validated with the patient. Source: old records reviewed and obtained from family Medical History DANELLE positive Chronic fatigue Essential hypertension GERD (gastroesophageal reflux disease) Moderate asthma PAC (premature atrial contraction) Polyarthralgia Restless leg syndrome Transaminitis Vertigo Surgical History History of section History of tubal ligation Family History Family History Paternal Grandfather Colon cancer Paternal Aunt Breast cancer Father No problems noted. Mother No problems noted. Social History Social History Household Members: Spouse and Children Alcohol intake: never Smoking Status: Never smoker Use of substances other than those prescribed or required for medical reasons: No Advance Directives: Yes Advance Directives Information Provided: Yes Advance Directives on File: No
[2020-05-24 15:17] VITALS: BP 143/90; PULSE 107; RESP 18; TEMP 36.6; O2SAT 98
[2020-05-24] MEDS: Ketorolac Tromethamine 60 MG/2 ML VIAL IM (15:41)
[2020-05-24 16:00] VITALS: RESP 18
[2020-05-24 18:15] VITALS: BP 143/87; PULSE 87; RESP 18; TEMP 36.7; O2SAT 99
[2020-05-24 20:11] VITALS: BP 144/97; PULSE 93; RESP 18; TEMP 36.5; O2SAT 98
== END 2020-05-24 21:34 | disposition home or self-care (01) ==
PROVIDERS: Emergency Provider Emergency Medicine; PCP Internal Medicine
DX: R10.11 Right upper quadrant pain (principal); I10 Essential (primary) hypertension; K21.9 Gastro-esophageal reflux disease without esophagitis; J45.909 Unspecified asthma, uncomplicated; Z79.899 Other long term (current) drug therapy
CPT/HCPCS: 36415; 74176; 76705; 80053; 80076; 81001; 81003; 81025; 82248; 83690; 85025; 96372; 99284; J1885

== ENCOUNTER 2020-06-11 10:04 | Outpatient (REF) | payer OTHER, SELFPAY ==
[2020-06-11 15:20] LABS: CT PCR NOT DETECTED (Not Detect.); NG PCR NOT DETECTED (Not Detect.)
[2020-06-15 19:22] LABS: HPV mRNA E6/E7 rflx Not Detected (Not Detected)
== END 2020-06-11 10:05 | disposition home or self-care (01) ==
LOC: HO.LAB 10:04
PROVIDERS: PCP Internal Medicine; Visit Provider Advanced Practice Midwife
DX: Z01.419 Encounter for gynecological examination (general) (routine) without abnormal findings (principal); Z84.89 Family history of other specified conditions; Z20.2 Contact with and (suspected) exposure to infections with a predominantly sexual mode of transmission; Z79.899 Other long term (current) drug therapy
CPT/HCPCS: 87491; 87591; 87624; 88142

== ENCOUNTER 2020-07-30 15:00 | Outpatient (REF) | payer OTHER, SELFPAY ==
--- NOTE | ~2020-07-30 | MM_ITS ---
EXAMINATION: MM SCREENING DIGITAL BREAST TOMOSYNTHESIS, BILATERAL CLINICAL INFORMATION: Screening. Asymptomatic. The lifetime risk of breast cancer based on the Tyrer-Cuzick Model is 11.7%. COMPARISON: Mammography: None TECHNIQUE: Digital breast tomosynthesis is performed in both the craniocaudal and mediolateral oblique views along with computer-aided detection (CAD). Synthesized 2D images are generated from the tomosynthesis. FINDINGS: The breasts are heterogeneously dense, which may obscure small masses (ACR BI-RADS breast composition Category c). There are no significant masses, abnormal calcifications, or other abnormalities. MM/MM tomosynthesis screening BI IMPRESSION: No specific mammographic evidence to suggest malignancy. ASSESSMENT: BI-RADS 1: Negative RECOMMENDATION: Routine annual mammography screening. This patient's information was entered into a reminder system with a target due date for their next mammogram.
== END 2020-07-30 15:01 | disposition home or self-care (01) ==
LOC: HO.MAMMO 15:00
PROVIDERS: Visit Provider Advanced Practice Midwife
DX: Z12.31 Encounter for screening mammogram for malignant neoplasm of breast (principal)
CPT/HCPCS: 77063; 77067

== ENCOUNTER 2021-03-23 09:36 | Outpatient (REF) | payer OTHER, SELFPAY ==
[2021-03-23 10:02] LABS: MANUAL DIFF FLAG NO
[2021-03-23 10:22] LABS: Basophils Percent Auto 0.5 % (0-2); Eosinophils Absolute Auto 0.1 X10*3/uL (0.0-0.4); Eosinophils Percent Auto 2.3 % (0-4); Hemoglobin 14.8 g/dl (12.0-16.0); Imm Gran Abs Auto 0.01 X10*3/uL (0.00-0.03); Imm Gran Pct Auto 0.2 % (0.0-0.4); Lymphocytes Absolute Auto 2.1 X10*3/uL (1.2-4.9); Mean Corpuscular HGB Conc 33.6 g/dl (31.0-35.0); Mean Corpuscular Hemoglobin 30.1 pg (27.0-33.0); Mean Corpuscular Volume 89.6 fL (80.0-98.0); Mean Platelet Volume 10.1 fL (9.4-12.3); Monocytes Absolute Auto 0.4 X10*3/uL (0.1-1.2); Monocytes Percent Auto 6.3 % (2-11); Neutrophils Absolute Auto 3.4 x10*3/uL (2.0-8.3); Neutrophils Percent Auto 55.7 % (45-73); Platelet Count 280 X10*3/uL (160-400); Red Blood Count 4.91 X10*6/uL (4.20-5.50); Red Cell Distribution Width 12.1 % (11.0-16.0)
[2021-03-23 10:49] LABS: Alanine Aminotransferase 26 U/L (0-31); Albumin Level 4.7 g/dL (3.5-5.0); Alkaline Phosphatase 87 U/L (39-117); Anion Gap 13 (12-20); Aspartate Amino Transferase 26 U/L (5-31); Bilirubin Total 0.6 mg/dL (0.0-1.0); Blood Urea Nitrogen 8 mg/dL (9-16); Calcium 9.9 mg/dL (8.4-10.2); Carbon Dioxide 27 mmol/L (22-29); Chloride 102 mmol/L (96-108); Estimated Glomerular Filt Rate > 60; Glucose Random 107 mg/dL (60-115); Potassium 3.7 mmol/L (3.3-5.1); Sodium 138 mmol/L (135-145); Total Protein 8.2 g/dL (6.5-8.0)
[2021-03-23 10:54] LABS: TSH reflex Free T4 0.67 uIU/mL (0.32-4.0)
[2021-03-23 11:10] LABS: Appearance Urine HAZY; Color Urine YELLOW; Glucose Urine UA NEG (NEG); Leukocyte Esterase Urine NEG (NEG); Nitrite Urine NEG (NEG); Specific Gravity - Urine 1.025 (1.005-1.025); UACC Culture Trigger NO; Urine Blood 2+ (NEG); Urine Ketones NEG (NEG); Urine Protein NEG (NEG-TRACE)
[2021-03-23 11:45] LABS: Bacteria Urine 4+ /LPF; Squamous Epithelial Cell Urine 3+ /LPF
== END 2021-03-23 09:37 | disposition home or self-care (01) ==
LOC: HO.LAB 09:36
PROVIDERS: PCP Internal Medicine; Visit Provider Internal Medicine
DX: I10 Essential (primary) hypertension (principal)
CPT/HCPCS: 36415; 80053; 81001; 81003; 84443; 85025

== ENCOUNTER 2021-09-03 09:59 | Outpatient (REF) | payer OTHER, SELFPAY ==
--- NOTE | 2021-09-03 10:07 | ECG_ITS ---
Test Reason : I10 HTN Blood Pressure : / mmHG Vent. Rate : 075 BPM Atrial Rate : 075 BPM P-R Int : 128 ms QRS Dur : 066 ms QT Int : 374 ms P-R-T Axes : 069 027 040 degrees QTc Int : 417 ms Normal sinus rhythm Normal ECG When compared with ECG of 28-SEP-2013 21:21, No significant change was found Referred By: Nhung Trevino Electronically Signed By:ETELVINA WOOTEN MD
[2021-09-03 11:40] LABS: Vitamin D 25-OH Total 19.9 ng/mL (>30)
[2021-09-03 11:42] LABS: Alanine Aminotransferase 16 U/L (0-31); Albumin Level 4.2 g/dL (3.5-5.0); Alkaline Phosphatase 77 U/L (39-117); Anion Gap 12 (12-20); Aspartate Amino Transferase 15 U/L (5-31); Bilirubin Total 0.5 mg/dL (0.0-1.0); Blood Urea Nitrogen 11 mg/dL (9-16); Calcium 8.8 mg/dL (8.4-10.2); Carbon Dioxide 23 mmol/L (22-29); Chloride 106 mmol/L (96-108); Cholesterol 210 mg/dL; Estimated Glomerular Filt Rate > 60; Glucose Fasting 108 mg/dL (60-99); HDL Cholesterol 38 mg/dL; LDL Cholesterol Calculated 138 mg/dl; Potassium 4.1 mmol/L (3.3-5.1); Sodium 137 mmol/L (135-145); Total Protein 7.3 g/dL (6.5-8.0); Triglycerides 173 mg/dL
[2021-09-03 13:02] LABS: Appearance Urine CLEAR; Color Urine YELLOW; Glucose Urine UA NEG (NEG); Leukocyte Esterase Urine NEG (NEG); Nitrite Urine NEG (NEG); Specific Gravity - Urine 1.025 (1.005-1.025); Urine Blood NEG (NEG); Urine Ketones NEG (NEG); Urine Protein NEG (NEG-TRACE)
== END 2021-09-03 10:00 | disposition home or self-care (01) ==
LOC: HO.LAB 09:59
PROVIDERS: Internal Medicine; PCP Internal Medicine; Visit Provider Internal Medicine
DX: Z00.00 Encounter for general adult medical examination without abnormal findings (principal); I10 Essential (primary) hypertension; E55.9 Vitamin D deficiency, unspecified; E78.5 Hyperlipidemia, unspecified
CPT/HCPCS: 36415; 80053; 80061; 81003; 82306; 93005

== ENCOUNTER 2022-01-27 11:23 | Outpatient (REF) | payer OTHER, SELFPAY ==
[2022-01-27 12:31] LABS: Influenza A PCR NEGATIVE (Negative); Influenza B PCR NEGATIVE (Negative); Resp Syncy Virus RNA Qual PCR NEGATIVE (Negative); SARS COV2 PCR INHOUSE NEGATIVE (Negative)
== END 2022-01-27 11:24 | disposition home or self-care (01) ==
LOC: HO.LAB 11:23
PROVIDERS: Visit Provider Internal Medicine
DX: Z20.822 Contact with and (suspected) exposure to COVID-19 (principal); R09.89 Other specified symptoms and signs involving the circulatory and respiratory systems
CPT/HCPCS: 0241U

== ENCOUNTER 2022-09-22 07:17 | Outpatient (AMB) | payer OTHER, SELFPAY ==
[2022-09-22 07:30] VITALS: BP 130/82; PULSE 76; O2SAT 98; BMI 29.5
--- NOTE | 2022-09-22 07:30 | MHC.PC.OV ---
Vital Signs 09/22/22 07:30 Height 5 ft Weight 151 lb BMI 29.5 BP 130/82 Blood Pressure Location Lt brachial Position Sitting Pulse 76 Pulse Source Pulse Oximeter Pulse Oximetry (%) 98 Oxygen Delivery Method Room Air Intake Visit Reasons: Physical Exam Intake Note: Patient here for a physical exam, referral to ortho requested Advanced Practice Nurse Psychotherapist Required: Yes Advanced Practice Nurse Psychotherapist Language: Safety Compliance Specialist Name: Hebert Tristan Information Interpreted: non-clinical & clinical Accompanied by: Self / Same As Patient Allergies mustard [MUSTARD*] Allergy (Severe, Verified 09/22/22 07:43) PT USES EPI PEN seafood Allergy (Intermediate, Verified 09/22/22 07:43) swollen throat Seasonal Allergies Allergy (Intermediate, Verified 09/22/22 07:43) itch eyes Medication List - Last Reconciled 09/22/22 by EMMA Cisneros acetaminophen 325 mg PO QID PRN albuterol sulfate 2.5 mg (3 mL) inhalation Q6H 30 days albuterol sulfate 90 mcg/actuation (ProAir HFA) 2 puffs inhalation Q6H PRN 30 days amlodipine 2.5 mg PO DAILY blood pressure monitor As directed budesonide 90 mcg/actuation 1 inh inhalation BID 30 days epinephrine 0.3 mg (0.3 mL) IM DIRECTED 30 days gabapentin 300 mg PO BID hydrochlorothiazide 12.5 mg PO DAILY 90 days meclizine 25 mg PO TID PRN 30 days meloxicam 15 mg PO DAILY PRN 90 days montelukast 10 mg PO BEDTIME nebulizers (Aeroneb Go Nebulizer) As directed omeprazole 20 mg PO DAILY prednisone 10 mg PO DAILY PRN 6 days ropinirole 0.25 mg PO BEDTIME Tobacco use date assessed: 09/22/22 Dental Screening Dental Screen Date: 09/22/22 Did you have a dental visit in the last 12 months?: Yes Did you have a dental problem in the last 6 months where you did not have access to dental care?: No Was dental information given to patient?: Patient has dentist HPI HPI Comments History of Present Illness Details 42-year-old female past medical history significant for asthma, hypertension, polyarthralgia, chronic fatigue and GERD. Patient of Dr. Brock presents today for physical exam. Patient requesting to see a foot doctor for history of bilateral heel spurs, referral entered. Mammogram: July 2020 negative, mammogram ordered. Pap smear: Patient states has not had in few years, patient advised to call and make Pap smear appointment with [facility]. Eye exam: Referral entered. Dentist: Patient states she is in the process of trying to establish care with [facility] Medical History DANELLE positive Benign essential hypertension Chronic fatigue Essential hypertension GERD (gastroesophageal reflux disease) Lumbar pain Moderate asthma Overweight (BMI 25.0-29.9) PAC (premature atrial contraction) Polyarthralgia Renal calculi Restless leg syndrome Transaminitis Vertigo Surgical History History of section History of tubal ligation Family History Paternal Grandfather Colon cancer Paternal Aunt Breast cancer Father No problems noted. Mother No problems noted. Social History Household Members: Spouse and Children Housing: Apartment Alcohol intake: never Patient Tobacco Use Status: Never used Tobacco e-Cigarette/Vaping Use: Never Used Second Hand Smoke Exposure: No service: No Current occupational status: employed Current occupational exposures/hazards: No Gender identity: Female Cognitive needs: No Hearing needs: No Vision needs: No Female Reproductive History Menstrual Age of Menarche: 11 Questionnaire PHQ-9 Over the last 2 weeks, how often have you been bothered by any of the following problems? 1. Little interest or pleasure in doing things: not at all 2. Feeling down, depressed, or hopeless: not at all 3. Trouble falling or staying asleep, or sleeping too much: not at all 4. Feeling tired or having little energy: not at all 5. Poor appetite or overeating: not at all 6. Feeling bad about yourself - or that you are a failure or have let yourself or your family down: not at all 7. Trouble concentrating on things, such as reading the newspaper or watching television: not at all 8. Moving or speaking so slowly that other people could have noticed. Or the opposite - being so fidgety or restless that you have been moving around a lot more than usual: not at all 9. Thoughts that you would be better off or of hurting yourself in some way: not at all Total score: 0 Depression Screening Interpretation: Negative Source: Developed by Drs. Daniel Leroy, Zuly Joel, Junior Kimball and colleagues, with an educational handy from [employer]. Thrive Questionnaire Date Thrive assessed: 09/22/22 I am a: Patient What is your living situation today?: I have a steady place to live Within the past 12 months, did the food you bought not last and you didn't have the money to get more?: Never true Within the past 12 months, did you worry whether your food would run out before you got money to buy more?: Never true Do you have trouble paying for medicines?: No Do you have trouble getting transportation to medical appointments?: No Do you have trouble paying your heating and electricity bill?: No Do you have trouble taking care of your child, family member or friend?: No Do you have trouble with day-to-day activities such as bathing, preparing meals, shopping, managing finances, etc.?: No Are you currently unemployed and looking for a job?: No Are you interested in more education?: No Currently or been in a relationship where the following occur: no concerns reported AUDIT C Alcohol Use Questionnaire (AUDIT-C) 1. How often do you have a drink containing alcohol?: Never Total Score: 0 Score Reviewed/Action Taken: Yes ELIO-7 AMB Questionnaire ELIO-7 Date ELIO - 7 assessed: 09/22/22 Feeling nervous, anxious, or on edge: 0 = Not at all Not being able to stop or control worryin = Not at all Worrying too much about different things: 0 = Not at all Trouble relaxin = Not at all Being so restless that it is hard to sit still: 0 = Not at all Becoming easily annoyed or irritable: 0 = Not at all Feeling afraid as if something awful might happen: 0 = Not at all Total ELIO-7 score (0-4 normal; 5-9 mild; 10-14 moderate; 15-21 severe): 0 Source: Developed by Zuly Law, Junior Kimball and colleagues, with an educational handy from [employer]. Review of Systems Const Denies chills, Denies fatigue, Denies fever(s) and Denies poor appetite Eyes Denies no additional complaints ENT Reports Normal hearing present Card Denies chest pain, Denies syncope, Denies rapid heart rate and Denies dyspnea Resp Denies cough and Denies dyspnea GI Denies change in stool character, Denies constipation, Denies diarrhea, Denies nausea and Denies vomiting Denies urinary frequency, Denies dysuria and Denies urinary urgency Neuro Reports Normal hearing present, Denies confusion and Denies syncope Psych Denies confusion Endo Denies fatigue Physical exam (Primary Care) Vital Signs: Last Vital Signs Pulse 76 09/22/22 07:30 BP 130/82 09/22/22 07:30 Pulse Ox 98 09/22/22 07:30 Oxygen Delivery Method Room Air 09/22/22 07:30 BMI result Body Mass Index 29.5 Tobacco/Smoking Status: Tobacco use Status Tobacco use date assessed 09/22/22 09/22/22 07:32 Patient Tobacco Use Status Never used Tobacco 09/22/22 07:32 e-Cigarette/Vaping Use Never Used 09/22/22 07:32 PHQ-9: PHQ-9 Score PHQ-9: Total score 0 09/22/22 07:35 Depression Screening Interpretation: Negative Thrive Assessment: Date of Thrive Assessment Date Thrive assessed 09/22/22 09/22/22 07:34 Currently or been in a relationship where the following occur: no concerns reported Const General: No confusion Orientation/consciousness: No confusion HENMT Head: Yes normocephalic and Yes atraumatic Ears: external ears normal and TM's normal bilaterally General nose exam: Normal external nose present and Normal nasal mucous membranes and turbinates present Face and sinus: Yes normal facial exam and Yes sinuses nontender Mouth: moist mucous membranes Throat: Yes tonsils normal Eyes Conjunctivae: conjunctivae normal Sclerae: sclerae normal Pupils: Equal, round and reactive pupils present and Pupils normal by confrontation EOM: EOMs intact bilaterally Direct Ophthalmoscopy: normal light reflex Neck Neck: Yes no lymphadenopathy and Yes supple Thyroid: Thyroid normal Chest Chest palpation & inspection: normal inspection of the chest Resp Effort & Inspection: normal respiratory effort Auscultation: clear to auscultation bilaterally, no crackles, no rhonchi and no wheezes Cardio Rate: regular rate Rhythm: regular rhythm Peripheral pulses: radial pulses present and dorsalis pedis present GI Inspection: Yes normal to inspection Palpation (GI): Soft to palpation, nontender and No hepatosplenomegaly present Auscultation: normoactive bowel sounds Skin General skin exam: no rashes or lesions noted Neuro General: No confusion Cranial nerves: Yes Equal, round and reactive pupils present and Yes Normal hearing present Cognition (Neuro): normal cognition Gait exam (Neuro): Normal gait present Motor exam (neuro): 5/5 motor strength present throughout Deep tendon reflexes (DTR's): Right brachioradialis reflex intensity grade: 2+, Left brachioradialis reflex intensity grade: 2+, Right patellar reflex intensity grade: 2+ and Left patellar reflex intensity grade: 2+ Extrem General: No edema Assessment and Plan Assessment & Plan (1) Essential hypertension: Code(s): I10 - Essential (primary) hypertension Plan: Continue on hydrochlorothiazide. Follow low-salt diet and exercise. Blood pressure goal less than 140/90. (2) Physical exam, annual: Code(s): Z00.00 - Encounter for general adult medical examination without abnormal findings Plan: Follow-up in 1 year. (3) Bilateral calcaneal spurs: Code(s): M77.31 - Calcaneal spur, right foot; M77.32 - Calcaneal spur, left foot Plan: Patient advise can take Tylenol and ibuprofen as needed for pain. Referral entered to podiatry as requested by patient. Plan Follow-up in 6 months. Orders: Orders Comprehensive [place]. Panel Fast Today I10 - Essential (primary) hypertension Lipid Panel Today Z13.220 - Encounter for screening for lipoid disorders Complete Blood Count Auto Diff Today Z13.0 - Encounter for screening for diseases of the blood and blood-forming organs and certain disorders involving the immune mechanism MM screening mammo BI Today Z12.31 - Encounter for screening mammogram for malignant neoplasm of breast TSH reflex Free T4 Today Z13.29 - Encounter for screening for other suspected endocrine disorder Vitamin D 25-OH Total Today Z13.21 - Encounter for screening for nutritional disorder Referrals Ophthalmology Referral Z01.00 - Encounter for examination of eyes and vision without abnormal findings Podiatry Referral M77.31 - Calcaneal spur, right foot, M77.32 - Calcaneal spur, left foot Coding Level of Care Code Est Pt Prev Care 40-64y(54578) Diagnoses Essential hypertension I10 Physical exam, annual Z00.00 Bilateral calcaneal spurs M77.31; M77.32 Additional Codes PHQ-9 - 51574 - PHQ-9 Billing: Y ([id number])
== END 2022-09-22 07:59 | disposition home or self-care (01) ==
PROVIDERS: PCP Internal Medicine; Visit Provider Nurse Practitioner Family
DX: I10 Essential (primary) hypertension (principal); Z00.00 Encounter for general adult medical examination without abnormal findings; M77.31 Calcaneal spur, right foot; M77.32 Calcaneal spur, left foot
CPT/HCPCS: 99396

== ENCOUNTER 2022-11-03 12:15 | Outpatient (REF) | payer OTHER, SELFPAY ==
--- NOTE | ~2022-11-03 | MM_ITS ---
EXAMINATION: MM SCREENING DIGITAL BREAST TOMOSYNTHESIS, BILATERAL CLINICAL INFORMATION: Screening. Asymptomatic. COMPARISON: Mammography: This study is compared with prior exams dating back to 2020. TECHNIQUE: Digital breast tomosynthesis is performed in both the craniocaudal and mediolateral oblique views along with computer-aided detection (CAD). Synthesized 2D images are generated from the tomosynthesis. FINDINGS: The breasts are heterogeneously dense, which may obscure small masses (ACR BI-RADS breast composition Category c). There are no significant masses, abnormal calcifications, or other abnormalities. MM/MM tomosynthesis screening BI IMPRESSION: No mammographic evidence of malignancy. ASSESSMENT: BI-RADS BI-RADS 1 - Negative RECOMMENDATION: Routine annual mammography screening. 1 year F/U This examination should not preclude the clinical evaluation of a suspicious palpable abnormality. This patient's information was entered into a reminder system with a target due date for their next mammogram.
== END 2022-11-03 12:16 | disposition home or self-care (01) ==
LOC: HO.MAMMO 12:15
PROVIDERS: PCP Internal Medicine; Visit Provider Nurse Practitioner Family
DX: Z12.31 Encounter for screening mammogram for malignant neoplasm of breast (principal)
CPT/HCPCS: 77063; 77067

== ENCOUNTER → 2022-11-03 12:30 | Outpatient (BNV) | payer OTHER, SELFPAY | PROVIDERS: PCP Internal Medicine; Visit Provider Radiology Diagnostic Radiology | DX: Z12.31 Encounter for screening mammogram for malignant neoplasm of breast (principal) | CPT/HCPCS: 77063; 77067 ==

== ENCOUNTER 2023-03-27 07:55 | Outpatient (AMB) | payer OTHER, SELFPAY ==
[2023-03-27 07:59] VITALS: BP 140/86; BMI 28.9
--- NOTE | 2023-03-27 07:59 | MHC.PC.OV ---
Vital Signs 03/27/23 07:59 03/27/23 10:55 Height 5 ft Weight 148 lb BMI 28.9 BP 140/86 H 150/90 H Blood Pressure Location Lt brachial Lt brachial Position Sitting Sitting Intake Visit Reasons: 6M f/u HTN,GERD, polyarthralgia Intake Note: Patient here for a 6 month follow up HTN, GERD, Polyalthralgia Principal Trainer Required: No Accompanied by: Self / Same As Patient Allergies mustard [MUSTARD*] Allergy (Severe, Verified 03/27/23 08:13) PT USES EPI PEN seafood Allergy (Intermediate, Verified 03/27/23 08:13) swollen throat Seasonal Allergies Allergy (Intermediate, Verified 03/27/23 08:13) itch eyes Medication List - Last Reconciled 03/27/23 by Nhung Trevino MD acetaminophen 325 mg PO QID PRN albuterol sulfate 90 mcg/actuation (ProAir HFA) 2 puffs inhalation Q6H PRN 30 days albuterol sulfate 2.5 mg (3 mL) inhalation Q6H 30 days amlodipine 2.5 mg PO DAILY blood pressure monitor As directed budesonide 90 mcg/actuation 1 inh inhalation BID 30 days epinephrine 0.3 mg (0.3 mL) IM DIRECTED 30 days gabapentin 300 mg PO BID hydrochlorothiazide 12.5 mg PO DAILY 90 days meclizine 25 mg PO TID PRN 30 days meloxicam 15 mg PO DAILY PRN 90 days montelukast 10 mg PO BEDTIME nebulizers (Aeroneb Go Nebulizer) As directed omeprazole 20 mg PO DAILY ropinirole 0.25 mg PO BEDTIME Tobacco use date assessed: 03/27/23 Dental Screening Dental Screen Date: 03/27/23 Did you have a dental visit in the last 12 months?: No Did you have a dental problem in the last 6 months where you did not have access to dental care?: No Was dental information given to patient?: Patient has dentist HPI HPI Comments History of Present Illness Details This is a 42-year-old female with hypertension, GERD and moderate asthma that comes today complaining of paresthesias in hands that has been bothering her. Nerve conduction study ordered. She also has pain in feet and has calcaneal spur and will be referred to Podiatry. Blood pressure elevated and will be recheck in 3 weeks. I will increase amlodipine from 2.5 mg to 5 mg. GERD stable with PPIs. She has been using rescue inhaler few times a week and I will add Arnuity to be used daily and refer her to pulmonology. [facility] Medical History (Updated 03/27/23 @ 08:18 by Nhung Trevino MD) Overweight (BMI 25.0-29.9) Benign essential hypertension Renal calculi Lumbar pain Transaminitis Essential hypertension NHUNG positive PAC (premature atrial contraction) Chronic fatigue Restless leg syndrome GERD (gastroesophageal reflux disease) Moderate asthma Polyarthralgia Vertigo Surgical History History of tubal ligation History of section Family History Paternal Grandfather Colon cancer Paternal Aunt Breast cancer Father No problems noted. Mother No problems noted. Social History Household Members: Spouse and Children Housing: Apartment Alcohol intake: never Patient Tobacco Use Status: Never used Tobacco e-Cigarette/Vaping Use: Never Used Second Hand Smoke Exposure: No service: No Current occupational status: employed Current occupational exposures/hazards: No Gender identity: Female Cognitive needs: No Hearing needs: No Vision needs: No Female Reproductive History Menstrual Age of Menarche: 11 Questionnaire PHQ-9 Over the last 2 weeks, how often have you been bothered by any of the following problems? 1. Little interest or pleasure in doing things: not at all 2. Feeling down, depressed, or hopeless: not at all 3. Trouble falling or staying asleep, or sleeping too much: not at all 4. Feeling tired or having little energy: not at all 5. Poor appetite or overeating: not at all 6. Feeling bad about yourself - or that you are a failure or have let yourself or your family down: not at all 7. Trouble concentrating on things, such as reading the newspaper or watching television: not at all 8. Moving or speaking so slowly that other people could have noticed. Or the opposite - being so fidgety or restless that you have been moving around a lot more than usual: not at all 9. Thoughts that you would be better off or of hurting yourself in some way: not at all Total score: 0 Depression Screening Interpretation: Negative Depression Screening Done: Yes 95920 - PHQ-9 Billing: Yes Source: Developed by Drs. Daniel Leroy, Zuly Joel, Junior Kimball and colleagues, with an educational handy from [employer]. Thrive Questionnaire Date Thrive assessed: 03/27/23 I am a: Patient What is your living situation today?: I have a steady place to live Within the past 12 months, did the food you bought not last and you didn't have the money to get more?: Never true Within the past 12 months, did you worry whether your food would run out before you got money to buy more?: Never true Do you have trouble paying for medicines?: No Do you have trouble getting transportation to medical appointments?: No Do you have trouble paying your heating and electricity bill?: No Do you have trouble taking care of your child, family member or friend?: No Do you have trouble with day-to-day activities such as bathing, preparing meals, shopping, managing finances, etc.?: No Are you currently unemployed and looking for a job?: No Are you interested in more education?: No Please select the resources that you would like help with: None Currently or been in a relationship where the following occur: no concerns reported THRIVE Score: 0 AUDIT C Alcohol Use Questionnaire (AUDIT-C) 1. How often do you have a drink containing alcohol?: Never Total Score: 0 ELIO-7 AMB Questionnaire ELIO-7 Date ELIO - 7 assessed: 03/27/23 Feeling nervous, anxious, or on edge: 0 = Not at all Not being able to stop or control worryin = Not at all Worrying too much about different things: 0 = Not at all Trouble relaxin = Not at all Being so restless that it is hard to sit still: 0 = Not at all Becoming easily annoyed or irritable: 0 = Not at all Feeling afraid as if something awful might happen: 0 = Not at all Total ELIO-7 score (0-4 normal; 5-9 mild; 10-14 moderate; 15-21 severe): 0 Source: Developed by Zuly Law Kurt Kroenke and colleagues, with an educational handy from [employer]. ELIO-7 Assessment Billing ELIO-7 Assessment Tool: ELIO-7 Assessment 36867 Review of Systems Const All systems reviewed & are unremarkable except as noted in HPI and below Eyes Reports no additional complaints, Denies change in vision and Denies other visual disturbances Card Denies chest pain at rest, Denies chest pain with activity, Denies edema, Denies irregular heart rhythm, Denies claudication, Denies dyspnea, Denies dyspnea on exertion, Denies orthopnea, Denies paroxysmal nocturnal dyspnea and Denies slow heart rate Resp Denies cough, Denies dyspnea and Denies dyspnea on exertion GI Denies abdominal pain, Denies change in bowel habits, Denies excessive flatus, Denies nausea and Denies vomiting Denies urinary incontinence, Denies urinary hesitancy and Denies urinary urgency Musc Denies abnormal gait, Denies atrophy, Denies deformity and Denies limited range of motion Skin/Breast Denies bleeding lesions, Denies changing lesions and Denies rash Neuro Denies abnormal gait, Denies behavioral changes and Denies lack of coordination Psych Denies behavioral changes Physical exam (Primary Care) Vital Signs: Last Vital Signs BP 140/86 H 03/27/23 07:59 BMI result Body Mass Index 28.9 Tobacco/Smoking Status: Tobacco use Status Tobacco use date assessed 03/27/23 03/27/23 08:06 Patient Tobacco Use Status Never used Tobacco 03/27/23 08:06 e-Cigarette/Vaping Use Never Used 03/27/23 08:06 PHQ-9: PHQ-9 Score PHQ-9: Total score 0 03/27/23 08:17 Depression Screening Interpretation: Negative Thrive Assessment: Date of Thrive Assessment Date Thrive assessed 03/27/23 03/27/23 08:06 Currently or been in a relationship where the following occur: no concerns reported Eyes General: appearance normal, both eyes and all related structures Eyelids: Yes eyelids normal Conjunctivae: conjunctivae normal Neck Neck: Yes normal visual inspection and Yes supple Resp Effort & Inspection: normal respiratory effort Auscultation: clear to auscultation bilaterally Cardio Jugular venous distension: no JVD Rate: regular rate Rhythm: regular rhythm Heart sounds: S1 normal heart sound present and S2 normal heart sound present Extrem General: Yes full ROM Assessment and Plan Assessment & Plan (1) Benign essential hypertension: Code(s): I10 - Essential (primary) hypertension Plan: Recheck blood pressure with nurse navigator in 3 weeks. Blood pressure goal is equal or less than 130/80. Continue hydrochlorothiazide. Increase amlodipine from 2.5 mg to 5 mg once a day. (2) GERD (gastroesophageal reflux disease): Comment: Persistent acid reflux despite PPI. She does not smoke or drink alcohol. We will schedule gastric emptying study. EGD with biopsies reveals no H pylori. Code(s): K21.9 - Gastro-esophageal reflux disease without esophagitis Qualifiers: Esophagitis presence: esophagitis presence not specified Qualified Code(s): K21.9 - Gastro-esophageal reflux disease without esophagitis Plan: Continue PPIs. (3) Moderate asthma: Code(s): J45.909 - Unspecified asthma, uncomplicated Qualifiers: Asthma persistence: persistent Asthma complication type: uncomplicated Qualified Code(s): J45.40 - Moderate persistent asthma, uncomplicated Plan: Start Arnuity. Continue rescue inhaler as needed. Referred to pulmonology. (4) Paresthesia: Code(s): R20.2 - Paresthesia of skin Plan: Nerve conduction study ordered. (5) Bilateral calcaneal spurs: Code(s): M77.31 - Calcaneal spur, right foot; M77.32 - Calcaneal spur, left foot Plan: Referred to Podiatry. Orders: Orders NE nerve conduction velocity Today R20.2 - Paresthesia of skin Lipid Panel Today E78.5 - Hyperlipidemia, unspecified Comprehensive [place]. Panel Fast Today R20.2 - Paresthesia of skin Referrals Podiatry Referral M77.31 - Calcaneal spur, right foot, M77.32 - Calcaneal spur, left foot Pulmonology Referral J45.909 - Unspecified asthma, uncomplicated Medications: New amlodipine 5 mg PO DAILY 90 days 90 tabs 1RF fluticasone furoate 50 mcg/actuation (Arnuity Ellipta) 1 inh inhalation DAILY 30 days 30 ea 6RF J45.909 - Unspecified asthma, uncomplicated Discontinued amlodipine Discontinued Reason: Patient Completed Course 2.5 mg PO DAILY 30 tabs 2RF budesonide 90 mcg/actuation Discontinued Reason: Patient Completed Course 1 inh inhalation BID 30 days 1 ea 5RF Coding Level of Care Code Est Pt Level 4 (92916) Diagnoses Benign essential hypertension I10 Gastroesophageal reflux disease, unspecified whether esophagitis present K21.9 Esophagitis presence: esophagitis presence not specified Moderate persistent asthma without complication J45.40 Asthma persistence: persistent Asthma complication type: uncomplicated Paresthesia R20.2 Bilateral calcaneal spurs M77.31; M77.32 Additional Codes ELIO-7 Assessment Billing - ELIO-7 Assessment Tool: ELIO-7 Assessment 17026 ([id number]) Time Spent (min) 24
[2023-03-27 10:55] VITALS: BP 150/90
== END 2023-03-27 08:20 | disposition home or self-care (01) ==
PROVIDERS: PCP Internal Medicine; Visit Provider Internal Medicine
DX: I10 Essential (primary) hypertension (principal); K21.9 Gastro-esophageal reflux disease without esophagitis; J45.40 Moderate persistent asthma, uncomplicated; R20.2 Paresthesia of skin; M77.31 Calcaneal spur, right foot; M77.32 Calcaneal spur, left foot
CPT/HCPCS: 99214

== ENCOUNTER 2023-04-06 08:31 | Outpatient (REF) | payer OTHER, SELFPAY ==
--- NOTE | 2023-04-06 08:38 | EMG_ITS ---
Right median and ulnar motor and sensory studies were performed. Right radial sensory study was performed and right median and lateral antecubital brachial sensory studies were performed. Paraspinal muscles were tested with a needle. IMPRESSION: This study did not reveal any significant abnormality to suggest median or ulnar entrapment neuropathy, plexopathy, or radiculopathy. If symptoms persist, repeat study is recommended in 6 months' time. MD NIYA Priest/NIKI / [phone]
[2023-04-06 09:36] LABS: Alanine Aminotransferase 20 U/L (0-31); Alkaline Phosphatase 70 U/L (39-117); Anion Gap 11 (12-20); Aspartate Amino Transferase 19 U/L (5-31); Bilirubin Total 0.3 mg/dL (0.0-1.0); Blood Urea Nitrogen 8 mg/dL (9-16); Calcium 8.9 mg/dL (8.4-10.2); Carbon Dioxide 24 mmol/L (22-29); Chloride 107 mmol/L (96-108); Cholesterol 200 mg/dL (<200); Estimated Glomerular Filt Rate > 60; Glucose Fasting 115 mg/dL (60-99); HDL Cholesterol 46 mg/dL (>40); LDL Cholesterol Calculated 128 mg/dL (<100); Sodium 138 mmol/L (135-145); Total Protein 7.3 g/dL (6.5-8.0); Triglycerides 134 mg/dL (<150)
== END 2023-04-06 08:32 | disposition home or self-care (01) ==
LOC: HO.NEURO 08:31
PROVIDERS: PCP Internal Medicine; Visit Provider Internal Medicine
DX: R20.2 Paresthesia of skin (principal); E78.5 Hyperlipidemia, unspecified
CPT/HCPCS: 36415; 80053; 80061; 95886; 95910

== ENCOUNTER 2023-06-01 13:36 | Outpatient (REF) | payer OTHER, SELFPAY ==
[2023-06-01 14:19] LABS: MANUAL DIFF FLAG NO
[2023-06-01 14:52] LABS: Basophils Absolute Auto 0.1 X10*3/uL (0.0-0.2); Basophils Percent Auto 1.1 % (0-2); Eosinophils Absolute Auto 0.5 X10*3/uL (0.0-0.4); Eosinophils Percent Auto 5.6 % (0-4); Hematocrit 42.6 % (37.0-47.0); Hemoglobin 14.6 g/dl (12.0-16.0); Imm Gran Abs Auto 0.02 X10*3/uL (0.00-0.03); Imm Gran Pct Auto 0.2 % (0.0-0.4); Lymphocytes Absolute Auto 2.3 X10*3/uL (1.2-4.9); Lymphocytes Percent Auto 27.7 % (20-40); Mean Corpuscular HGB Conc 34.3 g/dl (31.0-35.0); Mean Corpuscular Hemoglobin 30.3 pg (27.0-33.0); Mean Corpuscular Volume 88.4 fL (80.0-98.0); Mean Platelet Volume 10.3 fL (9.4-12.3); Monocytes Absolute Auto 0.5 X10*3/uL (0.1-1.2); Monocytes Percent Auto 6.1 % (2-11); Neutrophils Absolute Auto 4.9 x10*3/uL (2.0-8.3); Neutrophils Percent Auto 59.3 % (45-73); Platelet Count 257 X10*3/uL (160-400); Red Blood Count 4.82 X10*6/uL (4.20-5.50); Red Cell Distribution Width 12.9 % (11.0-16.0); White Blood Count 8.2 X10*3/uL (4.8-10.8)
[2023-06-02 22:54] LABS: Class Alternaria alternata 0; Class Aspergillus fumigatus 0; Class Bermuda Grass 0/1; Class Birch 2; Class Cat Dander 6; Class Cladosporium herbarum 0; Class Cockroach 1; Class Common Ragweed 2; Class Cottonwood 0/1; Class Derm. pterony 4; Class Dermatophagoides farinae 4; Class Dog Dander 4; Class Elm 1; Class Maple Box Elder 0/1; Class Mountain Cedar 0/1; Class Mouse Urine Protein 0; Class Mugwort 0/1; Class Oak 1; Class Penicillium crysogenum 0; Class Rough Pigweed 0/1; Class Sheep Sorrel 0/1; Class Sycamore 0/1; Class Timothy Grass 1; Class Walnut Tree 0/1; Class White Ash 0/1; Class White Mulberry 0/1; E001 - IgE Cat Dander >100 kU/L; E072-IgE Mouse Urine <0.10 kU/L; G002 IgE Bermuda Grass 0.34 kU/L; I006-IgE Cockroach, German 0.62 kU/L; Immunoglobulin E 574 kU/L (<OR=114); M001 IgE Penicillium chrysogen <0.10 kU/L; M002 - IgE Cladosporium herbar <0.10 kU/L; M003 - IgE Aspergillus fumigat <0.10 kU/L; M006 - IgE Alternaria alternat <0.10 kU/L; T006 - IgE Cedar, Mountain 0.23 kU/L; T007 - IgE Oak, White 0.37 kU/L; T008 IgE Elm, American 0.53 kU/L; T010 - IgE Walnut 0.28 kU/L; T011 - IgE Maple Leaf Sycamore 0.31 kU/L; T014 - IgE Cottonwood 0.22 kU/L; T015 - IgE Ash, White 0.27 kU/L; T070 - IgE White Mulberry 0.14 kU/L; W001 - IgE Ragweed, Short 1.41 kU/L; W006 - IgE Mugwort 0.22 kU/L; W018 IgE Sheep Sorrel 0.18 kU/L
== END 2023-06-01 13:37 | disposition home or self-care (01) ==
LOC: HO.LAB 13:36
PROVIDERS: PCP Internal Medicine; Referring Provider Internal Medicine; Visit Provider Internal Medicine Pulmonary Disease
DX: J45.40 Moderate persistent asthma, uncomplicated (principal); G47.33 Obstructive sleep apnea (adult) (pediatric); Z91.09 Other allergy status, other than to drugs and biological substances
CPT/HCPCS: 36415; 82785; 85025; 86003; 99212

== ENCOUNTER 2023-06-01 13:36 | Outpatient (AMB) | payer OTHER, SELFPAY ==
[2023-06-01 13:39] VITALS: BP 104/62; PULSE 107; O2SAT 97; BMI 28.7
--- NOTE | 2023-06-01 13:39 | A.OFFVIS_ITS ---
Intake Vital Signs 06/01/23 13:39 Height 5 ft Weight 147 lb BMI 28.7 BP 104/62 Blood Pressure Location Rt brachial Position Sitting Pulse 107 H Pulse Source Doppler Pulse Oximetry (%) 97 Oxygen Delivery Method Room Air Intake Visit Reasons: Asthma Fibrous Wallboard Inspector Required: Yes Fibrous Wallboard Inspector Name: Marcelina Castro Allergies mustard [MUSTARD*] Allergy (Severe, Verified 06/01/23 13:43) PT USES EPI PEN seafood Allergy (Intermediate, Verified 06/01/23 13:43) swollen throat Seasonal Allergies Allergy (Intermediate, Verified 06/01/23 13:43) itch eyes HPI Asthma HPI Details 42-year-old lady, nonsmoker, with underl micaela asthma since childhood referred for management of her asthma symptoms. Patient states that she has been using Arnuity and albuterol MDI/neb with suboptimal control of her symptoms. She complains of intermittent wheezing and coughing. Though she denies an acute exacerbation at this time. Patient also complains of unrestful sleep, snoring, and daytime sleepiness. She denies exposure to industrial dusts. Patient does have history of asthma in her father. She has dog as a pet. Patient does complain of multiple environmental allergies. 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 [facility] Medical History Overweight (BMI 25.0-29.9) Benign essential hypertension Renal calculi Lumbar pain Transaminitis Essential hypertension NHUNG positive PAC (premature atrial contraction) Chronic fatigue Restless leg syndrome GERD (gastroesophageal reflux disease) Moderate asthma Polyarthralgia Vertigo Surgical History History of tubal ligation History of section Family History Paternal Grandfather Colon cancer Paternal Aunt Breast cancer Father No problems noted. Mother No problems noted. Social History Household Members: Spouse and Children Housing: Apartment Alcohol intake: never Patient Tobacco Use Status: Never used Tobacco e-Cigarette/Vaping Use: Never Used Second Hand Smoke Exposure: No service: No Current occupational status: employed Current occupational exposures/hazards: No Gender identity: Female Cognitive needs: No Hearing needs: No Vision needs: No Female Reproductive History Menstrual Age of Menarche: 11 Review of Systems Const Reports daytime sleepiness, Denies excessive sweating, Reports fatigue, Denies fever(s), Reports lethargy, Denies malaise, Denies night sweats, Reports snoring and Denies weight loss Eyes Denies blurry vision and Denies itchy eyes ENT Denies nasal congestion, Denies post nasal drip, Denies sinus pain, Denies sinus pressure and Denies other ( Thrush) Card Denies chest pain, Denies pedal edema, Denies dyspnea, Reports dyspnea on exertion, Denies orthopnea and Denies paroxysmal nocturnal dyspnea Resp Denies cough, Denies hemoptysis, Denies excessive phlegm production, Denies dyspnea, Reports dyspnea on exertion, Reports snoring and Reports wheezing GI Denies abdominal pain and Denies heartburn Musc Denies myalgias, Denies arthralgias and Denies joint swelling Skin/Breast Denies rash Neuro Denies memory loss and Denies seizure-like activity Psych Denies abnormal sleep pattern, Denies anxiety and Denies memory loss Endo Denies excessive sweating, Reports fatigue and Denies heat intolerance Andre/Lymph Denies easy bruising Aller/Immun Denies itchy eyes, Denies seasonal rhinorrhea and Reports wheezing Physical Exam Vital Signs: Last Vital Signs Pulse 107 H 06/01/23 13:39 BP 104/62 06/01/23 13:39 Pulse Ox 97 06/01/23 13:39 Oxygen Delivery Method Room Air 06/01/23 13:39 BMI result Body Mass Index 28.7 Const General: no acute distress and alert Nutritional Appearance: not obese Orientation/consciousness: Other orientation findings ( oriented) HEENT Head: Yes atraumatic Eyes General: appearance normal, both eyes and all related structures Sclerae: sclerae normal EOM: EOMs intact bilaterally Neck Neck: Yes supple Lymphatic: no lymphadenopathy noted Resp Effort & Inspection: normal respiratory effort and no use of accessory muscles Auscultation: clear to auscultation bilaterally Cardio Rate: regular rate Rhythm: regular rhythm Heart sounds: no gallops, no murmurs and no rubs Skin General skin exam: other ( warm) Extrem General: No clubbing, No cyanosis and No edema Assessment & Plan Assessment & Plan (1) Moderate asthma: Code(s): J45.909 - Unspecified asthma, uncomplicated Qualifiers: Asthma persistence: persistent Asthma complication type: uncomplicated Qualified Code(s): J45.40 - Moderate persistent asthma, uncomplicated Plan: Suboptimally controlled on Arnuity and albuterol MDI. Will change Arnuity to Breo. Will obtain full PFT. (2) Environmental allergies: Code(s): Z91.09 - Other allergy status, other than to drugs and biological substances Plan: Will obtain IgE level, CBC with differential, and RAST panel for further evaluation. (3) PRAVEENA (obstructive sleep apnea): Code(s): G47.33 - Obstructive sleep apnea (adult) (pediatric) Plan: Patient with daytime sleepiness, as tall sleep, snoring. Minto Sleepiness Scale score of 16. Will obtain home sleep study. Orders: Orders Complete Blood Count Auto Diff Today J45.40 - Moderate persistent asthma, uncomplicated PFT pulmonary function test Today J45.40 - Moderate persistent asthma, uncomplicated RT home sleep study Today G47.33 - Obstructive sleep apnea (adult) (pediatric) Resp Allergy Profile Region I Today J45.40 - Moderate persistent asthma, uncomplicated Medications: New fluticasone furoate-vilanterol 200-25 mcg/dose (Breo Ellipta) 1 inh inhalation DAILY 1 ea 6RF 30 days J45.40 - Moderate persistent asthma, uncomplicated Discontinued fluticasone furoate 50 mcg/actuation (Arnuity Ellipta) Discontinued Reason: Doctor's Order 1 inh inhalation DAILY 30 days 30 ea 6RF J45.909 - Unspecified asthma, uncomplicated Coding Level of Care Code Est Pt Level 4 (61239) Diagnoses Moderate persistent asthma without complication J45.40 Asthma persistence: persistent Asthma complication type: uncomplicated Environmental allergies Z91.09 PRAVEENA (obstructive sleep apnea) G47.33
== END 2023-06-01 13:52 | disposition home or self-care (01) ==
PROVIDERS: PCP Internal Medicine; Referring Provider Internal Medicine; Visit Provider Internal Medicine Pulmonary Disease
DX: J45.40 Moderate persistent asthma, uncomplicated (principal); Z91.09 Other allergy status, other than to drugs and biological substances; G47.33 Obstructive sleep apnea (adult) (pediatric)
CPT/HCPCS: 99214

== ENCOUNTER 2023-06-19 10:18 | Outpatient (AMB) | payer OTHER, SELFPAY ==
[2023-06-19 11:15] VITALS: BP 110/62; PULSE 91; TEMP 36.8; O2SAT 99; BMI 29.4
--- NOTE | 2023-06-19 11:15 | MHC.OFFWIV ---
Intake Vital Signs 06/19/23 11:15 Height 5 ft Weight 150 lb 6 oz BMI 29.4 BP 110/62 Blood Pressure Location Rt brachial Position Sitting Pulse 91 Pulse Source Pulse Oximeter Temp 98.2 F Temp Source Oral Pulse Oximetry (%) 99 Oxygen Delivery Method Room Air Intake Visit Reasons: EP Rash on LT arm Intake Note: Pt presents to the office today for a rash on her left arm that she noticed when she woke up this morning. She states it is not painful or itchy. Patient Tobacco Use Status: Never used Tobacco Allergies mustard [MUSTARD*] Allergy (Severe, Verified 06/19/23 11:17) PT USES EPI PEN seafood Allergy (Intermediate, Verified 06/19/23 11:17) swollen throat Seasonal Allergies Allergy (Intermediate, Verified 06/19/23 11:17) itch eyes HPI HPI Comments History of Present Illness Details Patient presents to the walk-in today for sick visit Endorses rash to left forearm She reports that it was present when she awoke this morning, denies any rash yesterday Non painful, non pruritic Denies injury to the arm Patient denies new meds, allergies or diagnoses Denies fever, chills, shortness of breath, chest pain, palpitations, dizziness, weakness Denies history of arthralgias Denies known insect bites, tick bites [facility] Medical History (Updated 06/19/23 @ 12:20 by Sweetie Cobian APRN, SCIENTIFIC RECRUITER) Overweight (BMI 25.0-29.9) Benign essential hypertension Renal calculi Lumbar pain Transaminitis Essential hypertension DANELLE positive PAC (premature atrial contraction) Chronic fatigue Restless leg syndrome GERD (gastroesophageal reflux disease) Moderate asthma Polyarthralgia Vertigo Surgical History History of tubal ligation History of section Family History Paternal Grandfather Colon cancer Paternal Aunt Breast cancer Father No problems noted. Mother No problems noted. Social History Household Members: Spouse and Children Housing: Apartment Alcohol intake: never Patient Tobacco Use Status: Never used Tobacco e-Cigarette/Vaping Use: Never Used Second Hand Smoke Exposure: No service: No Current occupational status: employed Current occupational exposures/hazards: No Gender identity: Female Cognitive needs: No Hearing needs: No Vision needs: No Female Reproductive History Menstrual Age of Menarche: 11 Review of Systems Const All systems reviewed & are unremarkable except as noted in HPI and below Physical Exam Vital Signs: Last Vital Signs Temp 98.2 F 06/19/23 11:15 Pulse 91 06/19/23 11:15 BP 110/62 06/19/23 11:15 Pulse Ox 99 06/19/23 11:15 Oxygen Delivery Method Room Air 06/19/23 11:15 BMI result Body Mass Index 29.4 General: awake, alert, oriented. Answers questions appropriately. Fully engaged in examination. Skin: Petechial rash left forearm starting across 2nd metacarpal phalangeal joints of 2nd 3rd 4th 5th digits extending up posterior forearm stopping just below elbow. Faint area streaking up anterior forearm. No discharge, warmth, raised rash noted Cardiac: External chest normal in appearance. Respiratory: No cough, audible wheezing or stridor. Abdomen: without gross distension. MS: No obvious swelling or deformities. Able to stand on bilateral tiptoes and bilateral heels.? Able to transition from sit to stand unassisted. Ambulates with bilaterally normal heel strike and toe off Neurological: Oriented to person, place, time and situation. Thought process intact. No gait abnormalities appreciated. Psychiatric: Appropriate mood and affect. Good judgment and insight. Assessment & Plan Assessment & Plan (1) Rash: Code(s): R21 - Rash and other nonspecific skin eruption Plan Labs ordered: CBC with diff, sed rate, CK total, BMP, CRP. Doxycycline 100 mg p.o. b.i.d. take with food. Follow up with PCP or return here for any new or worsening symptoms Orders: Orders Complete Blood Count Auto Diff Today R21 - Rash and other nonspecific skin eruption Erythrocyte Sedimentation Rate Today R21 - Rash and other nonspecific skin eruption Creatine Kinase Total Today R21 - Rash and other nonspecific skin eruption Basic Metabolic Panel Today R21 - Rash and other nonspecific skin eruption C Reactive Protein Today R21 - Rash and other nonspecific skin eruption Medications: New doxycycline hyclate 100 mg PO BID 10 days 20 caps 0RF Coding Level of Care Code Est Pt Level 3 (18314) Diagnoses Rash R21
== END 2023-06-19 12:06 | disposition home or self-care (01) ==
PROVIDERS: PCP Internal Medicine; Visit Provider Registered Nurse Emergency
DX: R21 Rash and other nonspecific skin eruption (principal)
CPT/HCPCS: 99213

== ENCOUNTER 2023-06-19 12:07 | Outpatient (REF) | payer OTHER, SELFPAY ==
[2023-06-19 13:15] LABS: MANUAL DIFF FLAG NO
[2023-06-19 13:25] LABS: Basophils Absolute Auto 0.1 X10*3/uL (0.0-0.2); Basophils Percent Auto 1.2 % (0-2); Eosinophils Absolute Auto 0.3 X10*3/uL (0.0-0.4); Eosinophils Percent Auto 5.3 % (0-4); Hematocrit 42.6 % (37.0-47.0); Hemoglobin 14.2 g/dl (12.0-16.0); Imm Gran Abs Auto 0.02 X10*3/uL (0.00-0.03); Imm Gran Pct Auto 0.4 % (0.0-0.4); Lymphocytes Absolute Auto 1.9 X10*3/uL (1.2-4.9); Lymphocytes Percent Auto 32.7 % (20-40); Mean Corpuscular HGB Conc 33.3 g/dl (31.0-35.0); Mean Corpuscular Hemoglobin 30.4 pg (27.0-33.0); Mean Corpuscular Volume 91.2 fL (80.0-98.0); Mean Platelet Volume 10.4 fL (9.4-12.3); Monocytes Absolute Auto 0.3 X10*3/uL (0.1-1.2); Monocytes Percent Auto 5.3 % (2-11); Neutrophils Absolute Auto 3.2 x10*3/uL (2.0-8.3); Neutrophils Percent Auto 55.1 % (45-73); Platelet Count 290 X10*3/uL (160-400); Red Blood Count 4.67 X10*6/uL (4.20-5.50); White Blood Count 5.7 X10*3/uL (4.8-10.8)
[2023-06-19 13:57] LABS: Anion Gap 11 (12-20); Blood Urea Nitrogen 5 mg/dL (9-16); C Reactive Protein 0.51 mg/dL (< or = 0.50); Calcium 9.4 mg/dL (8.4-10.2); Carbon Dioxide 25 mmol/L (22-29); Chloride 107 mmol/L (96-108); Estimated Glomerular Filt Rate > 60; Glucose Random 93 mg/dL (60-115); Potassium 4.1 mmol/L (3.3-5.1); Sodium 139 mmol/L (135-145)
[2023-06-19 14:00] LABS: Erythrocyte Sedimentation Rate 10 MM/HR (0-20)
== END 2023-06-19 12:08 | disposition home or self-care (01) ==
LOC: HO.HMGCLDS 12:07
PROVIDERS: PCP Internal Medicine; Visit Provider Registered Nurse Emergency
DX: R21 Rash and other nonspecific skin eruption (principal)
CPT/HCPCS: 36415; 80048; 82550; 85025; 85652; 86140

== ENCOUNTER 2023-06-27 09:35 | Outpatient (REF) | payer OTHER, SELFPAY ==
[2023-06-27 09:16] VITALS: PULSE 88; RESP 16; O2SAT 98
--- NOTE | 2023-06-27 14:18 | PFT_ITS ---
Flows: FEV1: 82 % of predicted at 2.09 L FVC: 92 % of predicted at 2.86 L FEV1/FVC: 73 % Bronchodilator response: Present Volumes: Total lung capacity: 93 % of predicted at 4.20 L Residual volume: 142 % of predicted at 1.68 L Slow vital capacity: 75 % of predicted at 2.52 L Expiratory reserve volume: 98 % of predicted at 0.94 L Diffusion capacity: Normal Impression: No obstructive or restrictive ventilatory defect. Positive bronchodilator response. Increased residual volume suggests air trapping. MTDD
== END 2023-06-27 09:36 | disposition home or self-care (01) ==
LOC: HO.RESP 09:35
PROVIDERS: PCP Internal Medicine; Visit Provider Internal Medicine Pulmonary Disease
DX: J45.40 Moderate persistent asthma, uncomplicated (principal)
CPT/HCPCS: 94010; 94640; 94727; 94729

== ENCOUNTER → 2023-06-27 14:18 | Outpatient (BNV) | payer OTHER, SELFPAY | PROVIDERS: PCP Internal Medicine; Visit Provider Internal Medicine Pulmonary Disease | DX: J45.40 Moderate persistent asthma, uncomplicated (principal) | CPT/HCPCS: 94060; 94727; 94729 ==

== ENCOUNTER → 2023-07-13 08:53 | Outpatient (REF) | payer OTHER, SELFPAY | LOC: HO.SL 08:53 | PROVIDERS: PCP Internal Medicine; Visit Provider Internal Medicine Pulmonary Disease | DX: G47.33 Obstructive sleep apnea (adult) (pediatric) (principal) | CPT/HCPCS: 95806 ==

== ENCOUNTER → 2023-07-13 09:06 | Outpatient (BNV) | payer OTHER, SELFPAY | PROVIDERS: PCP Internal Medicine; Visit Provider Internal Medicine | DX: R06.83 Snoring (principal) | CPT/HCPCS: 95806 ==

== ENCOUNTER 2023-08-16 15:19 | Outpatient (AMB) | payer OTHER, SELFPAY ==
[2023-08-16 15:24] VITALS: BP 118/72; PULSE 108; O2SAT 98; BMI 28.6
--- NOTE | 2023-08-16 15:24 | MHC.OFFVIS ---
Vital Signs 08/16/23 15:24 Height 5 ft Weight 146 lb 9.718 oz BMI 28.6 BP 118/72 Blood Pressure Location Rt brachial Position Sitting Pulse 108 H Pulse Source Doppler Pulse Oximetry (%) 98 Oxygen Delivery Method Room Air Intake Visit Reasons: Asthma Underwear Trimmer Required: Yes Underwear Trimmer Name: Marcelina FelixJelenaPatrick Allergies mustard [MUSTARD*] Allergy (Severe, Verified 06/19/23 11:17) PT USES EPI PEN seafood Allergy (Intermediate, Verified 06/19/23 11:17) swollen throat Seasonal Allergies Allergy (Intermediate, Verified 06/19/23 11:17) itch eyes HPI HPI Asthma: Details: 43-year-old lady, nonsmoker, and is now followed for asthma and environmental allergies. Her sleep study was negative for underlying obstructive sleep apnea. After the last office visit patient was switched from Arnuity to Breo with some improvement, but incomplete control of his symptoms. She also initial immunologic workup that showed significant allergic component to her symptoms. She did complete her pulmonary function test showed underlying severe persistent asthma. She denies acute exacerbations. [facility] Medical History (Updated 08/16/23 @ 15:40 by Pancho Menchaca MD) PRAVEENA (obstructive sleep apnea) Overweight (BMI 25.0-29.9) Benign essential hypertension Renal calculi Lumbar pain Transaminitis Essential hypertension NHUNG positive PAC (premature atrial contraction) Chronic fatigue Restless leg syndrome GERD (gastroesophageal reflux disease) Moderate asthma Polyarthralgia Vertigo Surgical History History of tubal ligation History of section Family History (Reviewed 03/27/23 @ 08:03 by Adalgisa Sierra [facility]) Paternal Grandfather Colon cancer Paternal Aunt Breast cancer Father No problems noted. Mother No problems noted. Social History Household Members: Spouse and Children Housing: Apartment Alcohol intake: never Patient Tobacco Use Status: Never used Tobacco e-Cigarette/Vaping Use: Never Used Second Hand Smoke Exposure: No service: No Current occupational status: employed Current occupational exposures/hazards: No Gender identity: Female Cognitive needs: No Hearing needs: No Vision needs: No Female Reproductive History Menstrual Age of Menarche: 11 Review of Systems Const Denies daytime sleepiness, Denies excessive sweating, Denies fatigue, Denies fever(s), Denies lethargy, Denies malaise, Denies night sweats, Denies snoring and Denies weight loss Eyes Denies blurry vision and Denies itchy eyes ENT Denies nasal congestion, Denies post nasal drip, Denies sinus pain, Denies sinus pressure and Denies other ( Thrush) Card Denies chest pain, Denies pedal edema, Denies dyspnea, Denies orthopnea and Denies paroxysmal nocturnal dyspnea Resp Denies cough, Denies hemoptysis, Denies excessive phlegm production, Denies dyspnea, Denies snoring and Denies wheezing GI Denies abdominal pain and Denies heartburn Musc Denies myalgias, Denies arthralgias and Denies joint swelling Skin/Breast Denies rash Neuro Denies memory loss and Denies seizure-like activity Psych Denies abnormal sleep pattern, Denies anxiety and Denies memory loss Endo Denies excessive sweating, Denies fatigue and Denies heat intolerance Andre/Lymph Denies easy bruising Aller/Immun Denies itchy eyes, Denies seasonal rhinorrhea and Denies wheezing Physical Exam Vital Signs: Last Vital Signs Pulse 108 H 08/16/23 15:24 BP 118/72 08/16/23 15:24 Pulse Ox 98 08/16/23 15:24 Oxygen Delivery Method Room Air 08/16/23 15:24 BMI result Body Mass Index 28.6 Const General: no acute distress and alert Nutritional Appearance: not obese Orientation/consciousness: Other orientation findings ( oriented) HEENT Head: Yes atraumatic Eyes General: appearance normal, both eyes and all related structures Sclerae: sclerae normal EOM: EOMs intact bilaterally Neck Neck: Yes supple Lymphatic: no lymphadenopathy noted Resp Effort & Inspection: normal respiratory effort and no use of accessory muscles Auscultation: clear to auscultation bilaterally Cardio Rate: regular rate Rhythm: regular rhythm Heart sounds: no gallops, no murmurs and no rubs Skin General skin exam: other ( warm) Extrem General: No clubbing, No cyanosis and No edema Assessment & Plan Assessment & Plan (1) PRAVEENA (obstructive sleep apnea): Code(s): G47.33 - Obstructive sleep apnea (adult) (pediatric) Category: Medical Plan: Results of sleep study reviewed, no underlying obstructive sleep apnea noted. (2) Severe persistent asthma: Code(s): J45.50 - Severe persistent asthma, uncomplicated Category: Medical Plan: Results of pulmonary function test reviewed, underlying severe persistent asthma with improved, but still suboptimal control on Breo and albuterol MDI/nebs. Will request Xolair approval. (3) Environmental allergies: Code(s): Z91.09 - Other allergy status, other than to drugs and biological substances Category: Medical Plan: Results of immunologic workup reviewed, patient has underlying significant allergic component. Expect to improve on Xolair. Coding Level of Care Code Est Pt Level 4 (30883) Diagnoses PRAVEENA (obstructive sleep apnea) G47.33 Severe persistent asthma J45.50 Environmental allergies Z91.09
== END 2023-08-16 15:39 | disposition home or self-care (01) ==
PROVIDERS: PCP Internal Medicine; Visit Provider Internal Medicine Pulmonary Disease
DX: G47.33 Obstructive sleep apnea (adult) (pediatric) (principal); J45.50 Severe persistent asthma, uncomplicated; Z91.09 Other allergy status, other than to drugs and biological substances
CPT/HCPCS: 99214

== ENCOUNTER → 2023-08-16 15:19 | Outpatient (BNVA) | payer OTHER, SELFPAY | PROVIDERS: PCP Internal Medicine; Visit Provider Internal Medicine Pulmonary Disease | DX: G47.33 Obstructive sleep apnea (adult) (pediatric) (principal); J45.50 Severe persistent asthma, uncomplicated; Z91.09 Other allergy status, other than to drugs and biological substances | CPT/HCPCS: 99212 ==

== ENCOUNTER 2023-12-21 11:25 | Outpatient (AMB) | payer OTHER, SELFPAY ==
[2023-12-21 11:28] VITALS: BP 110/62; PULSE 99; O2SAT 99; BMI 29.7
--- NOTE | 2023-12-21 11:28 | A.OFFVIS_ITS ---
Vital Signs 12/21/23 11:28 Height 5 ft Weight 152 lb BMI 29.7 BP 110/62 Blood Pressure Location Rt brachial Position Sitting Pulse 99 Pulse Source Doppler Pulse Oximetry (%) 99 Oxygen Delivery Method Room Air Intake Visit Reasons: Asthma Maritime Engineer Required: Yes Maritime Engineer Name: Marcelina Castro Allergies mustard [MUSTARD*] Allergy (Severe, Verified 06/19/23 11:17) PT USES EPI PEN seafood Allergy (Intermediate, Verified 06/19/23 11:17) swollen throat Seasonal Allergies Allergy (Intermediate, Verified 06/19/23 11:17) itch eyes HPI HPI Asthma: Details: 43-year-old lady, nonsmoker, now followed for asthma and environmental allergies. Her sleep study was negative for underlying obstructive sleep apnea. After the last office visit patient was started on Xolair with improved symptoms while she was on it, however over the last several months she missed her injections in her symptom control worsening. Though, she does continue on Breo, duo nebs, and albuterol MDI. She denies acute exacerbations. [facility] Medical History (Updated 08/16/23 @ 15:40 by Pancho Menchaca MD) PRAVEENA (obstructive sleep apnea) Overweight (BMI 25.0-29.9) Benign essential hypertension Renal calculi Lumbar pain Transaminitis Essential hypertension NHUNG positive PAC (premature atrial contraction) Chronic fatigue Restless leg syndrome GERD (gastroesophageal reflux disease) Moderate asthma Polyarthralgia Vertigo Surgical History History of tubal ligation History of section Family History Paternal Grandfather Colon cancer Paternal Aunt Breast cancer Father No problems noted. Mother No problems noted. Social History Household Members: Spouse and Children Housing: Apartment Alcohol intake: never Patient Tobacco Use Status: Never used Tobacco e-Cigarette/Vaping Use: Never Used Second Hand Smoke Exposure: No service: No Current occupational status: employed Current occupational exposures/hazards: No Gender identity: Female Cognitive needs: No Hearing needs: No Vision needs: No Female Reproductive History Menstrual Age of Menarche: 11 Review of Systems Const Denies daytime sleepiness, Denies excessive sweating, Denies fatigue, Denies fever(s), Denies lethargy, Denies malaise, Denies night sweats, Denies snoring and Denies weight loss Eyes Denies blurry vision and Denies itchy eyes ENT Denies nasal congestion, Denies post nasal drip, Denies sinus pain, Denies sinus pressure and Denies other ( Thrush) Card Denies chest pain, Denies pedal edema, Denies dyspnea, Denies orthopnea and Denies paroxysmal nocturnal dyspnea Resp Denies cough, Denies hemoptysis, Denies excessive phlegm production, Denies dyspnea, Denies snoring and Denies wheezing GI Denies abdominal pain and Denies heartburn Musc Denies myalgias, Denies arthralgias and Denies joint swelling Skin/Breast Denies rash Neuro Denies memory loss and Denies seizure-like activity Psych Denies abnormal sleep pattern, Denies anxiety and Denies memory loss Endo Denies excessive sweating, Denies fatigue and Denies heat intolerance Andre/Lymph Denies easy bruising Aller/Immun Denies itchy eyes, Denies seasonal rhinorrhea and Denies wheezing Physical Exam Vital Signs: Last Vital Signs Pulse 99 12/21/23 11:28 BP 110/62 12/21/23 11:28 Pulse Ox 99 12/21/23 11:28 Oxygen Delivery Method Room Air 12/21/23 11:28 BMI result Body Mass Index 29.7 Const General: no acute distress and alert Nutritional Appearance: not obese Orientation/consciousness: Other orientation findings ( oriented) HEENT Head: Yes atraumatic Eyes General: appearance normal, both eyes and all related structures Sclerae: sclerae normal EOM: EOMs intact bilaterally Neck Neck: Yes supple Lymphatic: no lymphadenopathy noted Resp Effort & Inspection: normal respiratory effort and no use of accessory muscles Auscultation: clear to auscultation bilaterally Cardio Rate: regular rate Rhythm: regular rhythm Heart sounds: no gallops, no murmurs and no rubs Skin General skin exam: other ( warm) Extrem General: No clubbing, No cyanosis and No edema Assessment & Plan Assessment & Plan (1) Severe persistent asthma: Code(s): J45.50 - Severe persistent asthma, uncomplicated Category: Medical Plan: Suboptimal control off Xolair. Restart Xolair, continue Breo, duo nebs, and albuterol MDI/nebs. (2) Environmental allergies: Code(s): Z91.09 - Other allergy status, other than to drugs and biological substances Category: Medical Plan: Expect to improve after restarting Xolair. Coding Level of Care Code Est Pt Level 4 (40490) Diagnoses Severe persistent asthma J45.50 Environmental allergies Z91.09
== END 2023-12-21 11:39 | disposition home or self-care (01) ==
LOC: HO.HPS 11:26
PROVIDERS: PCP Internal Medicine; Visit Provider Internal Medicine Pulmonary Disease
DX: J45.50 Severe persistent asthma, uncomplicated (principal); Z91.09 Other allergy status, other than to drugs and biological substances
CPT/HCPCS: 99214

== ENCOUNTER → 2023-12-21 11:25 | Outpatient (BNVA) | payer OTHER, SELFPAY | PROVIDERS: PCP Internal Medicine; Visit Provider Internal Medicine Pulmonary Disease | DX: J45.50 Severe persistent asthma, uncomplicated (principal); Z91.09 Other allergy status, other than to drugs and biological substances | CPT/HCPCS: 99212 ==

== ENCOUNTER 2024-07-22 09:37 | Outpatient (REF) | payer OTHER, SELFPAY ==
--- NOTE | ~2024-07-22 | MM_ITS ---
EXAMINATION: MM SCREENING DIGITAL BREAST TOMOSYNTHESIS, BILATERAL CLINICAL INFORMATION: Screening. Asymptomatic. COMPARISON: Mammography: Comparison is made with available priors TECHNIQUE: Digital breast mammography with tomosynthesis is performed in both the craniocaudal and mediolateral oblique views along with computer-aided detection (CAD). FINDINGS: The breasts are heterogeneously dense, which may obscure small masses (ACR BI-RADS breast composition Category c). There are no significant masses, abnormal calcifications, or other abnormalities. MM/MM tomosynthesis screening BI IMPRESSION: No mammographic evidence of malignancy. ASSESSMENT: BI-RADS BI-RADS 1 - Negative RECOMMENDATION: Routine annual mammography screening. 1 year F/U This examination should not preclude the clinical evaluation of a suspicious palpable abnormality. This patient's information was entered into a reminder system with a target due date for their next mammogram. Electronically signed by: Marti Vizcarra DO 07/27/2024 05:35 PM EDT
== END 2024-07-22 09:38 | disposition home or self-care (01) ==
LOC: HO.MAMMO 09:37
PROVIDERS: PCP Internal Medicine; Visit Provider Internal Medicine
DX: Z12.31 Encounter for screening mammogram for malignant neoplasm of breast (principal); I10 Essential (primary) hypertension; G25.81 Restless legs syndrome; J45.50 Severe persistent asthma, uncomplicated; K21.9 Gastro-esophageal reflux disease without esophagitis; Z79.899 Other long term (current) drug therapy
CPT/HCPCS: 77063; 77067; 96127; 99212

== ENCOUNTER → 2024-07-22 09:45 | Outpatient (BNV) | payer OTHER, SELFPAY | PROVIDERS: PCP Internal Medicine; Visit Provider Internal Medicine | DX: Z12.31 Encounter for screening mammogram for malignant neoplasm of breast (principal) | CPT/HCPCS: 77063; 77067 ==

== ENCOUNTER 2024-07-22 10:10 | Outpatient (AMB) | payer OTHER, SELFPAY ==
[2024-07-22 10:15] VITALS: BP 132/86; BMI 29.9
--- NOTE | 2024-07-22 10:15 | A.OFFPC_ITS ---
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 Accompanied by: Self / Same As Patient Allergies mustard [MUSTARD*] Allergy (Severe, Verified 07/22/24 10:24) PT USES EPI PEN seafood Allergy (Intermediate, Verified 07/22/24 10:24) swollen throat Seasonal Allergies Allergy (Intermediate, Verified 07/22/24 10:24) itch eyes Medication List - Last Reconciled 07/22/24 by Nhung Trevino MD acetaminophen 325 mg PO QID PRN albuterol sulfate 2.5 mg (3 mL) inhalation Q6H 30 days albuterol sulfate 90 mcg/actuation 2 puffs inhalation Q6H PRN 30 days amlodipine 5 mg PO DAILY 90 days blood pressure monitor As directed doxycycline hyclate 100 mg PO BID 10 days epinephrine 0.3 mg (0.3 mL) IM DIRECTED 30 days fluticasone furoate-vilanterol 200-25 mcg/dose (Breo Ellipta) 1 inh inhalation DAILY 30 days gabapentin 300 mg PO BID hydrochlorothiazide 12.5 mg PO DAILY 90 days ipratropium-albuterol 0.5 mg-3 mg(2.5 mg base)/3 mL 3 mL inhalation Q4-6H PRN 30 days meclizine 25 mg PO TID PRN 30 days meloxicam 15 mg PO DAILY PRN 90 days montelukast 10 mg PO BEDTIME nebulizers (Aeroneb Go Nebulizer) As directed omeprazole 20 mg PO DAILY ropinirole 0.25 mg PO BEDTIME Tobacco use date assessed: 07/22/24 Dental Screening Dental Screen Date: 07/22/24 Did you have a dental visit in the last 12 months?: Yes Did you have a dental problem in the last 6 months where you did not have access to dental care?: No Was dental information given to patient?: Patient has dentist HPI HPI Comments History of Present Illness Details This is a 44-year-old female with hypertension, GERD, restless leg syndrome and severe persistent asthma that comes today complaining of elevated blood pressure that happens at night associated with headache. I will do amlodipine twice a day and increase hydrochlorothiazide from 12.5 mg to 25 mg in the morning. Denies any chest pain or shortness on breath. GERD stable with PPIs. On ropinirole for restless leg syndrome. Does have history of elevated cholesterol and lipid panel will be ordered. On Breo for asthma and follow by pulmonology. She does requires rescue inhaler few times a week. [facility] Medical History PRAVEENA (obstructive sleep apnea) Overweight (BMI 25.0-29.9) Benign essential hypertension Renal calculi Lumbar pain Transaminitis Essential hypertension NHUNG positive PAC (premature atrial contraction) Chronic fatigue Restless leg syndrome GERD (gastroesophageal reflux disease) Moderate asthma Polyarthralgia Vertigo Surgical History History of tubal ligation History of section Family History Paternal Grandfather Colon cancer Paternal Aunt Breast cancer Father No problems noted. Mother No problems noted. Social History Household Members: Spouse and Children Housing: Apartment Alcohol intake: never Patient Tobacco Use Status: Never used Tobacco e-Cigarette/Vaping Use: Never Used Second Hand Smoke Exposure: No service: No Current occupational status: employed Current occupational exposures/hazards: No Gender identity: Female Cognitive needs: No Hearing needs: No Vision needs: No Female Reproductive History Menstrual Age of Menarche: 11 Questionnaire PHQ-9 Over the last 2 weeks, how often have you been bothered by any of the following problems? 1. Little interest or pleasure in doing things: not at all 2. Feeling down, depressed, or hopeless: not at all 3. Trouble falling or staying asleep, or sleeping too much: more than half the days 4. Feeling tired or having little energy: several days 5. Poor appetite or overeating: not at all 6. Feeling bad about yourself - or that you are a failure or have let yourself or your family down: not at all 7. Trouble concentrating on things, such as reading the newspaper or watching television: not at all 8. Moving or speaking so slowly that other people could have noticed. Or the opposite - being so fidgety or restless that you have been moving around a lot more than usual: not at all 9. Thoughts that you would be better off or of hurting yourself in some way: not at all Total score: 3 Depression Screening Interpretation: Positive Depression Screening Follow-up: Existing condition and Follow-up Visit Requested Depression Screening Done: Yes 77587 - PHQ-9 Billing: Yes Source: Developed by Drs. Daniel Leroy, Zuly Joel, Junior Kimball and colleagues, with an educational handy from [employer]. Thrive Questionnaire Date Thrive assessed: 07/22/24 I am a: Patient What is your living situation today?: I have a steady place to live Within the past 12 months, did the food you bought not last and you didn't have the money to get more?: Sometimes True Within the past 12 months, did you worry whether your food would run out before you got money to buy more?: Sometimes True Do you have trouble paying for medicines?: No Do you have trouble getting transportation to medical appointments?: No Do you have trouble paying your heating and electricity bill?: I choose not to answer this question Do you have trouble taking care of your child, family member or friend?: No Do you have trouble with day-to-day activities such as bathing, preparing meals, shopping, managing finances, etc.?: No Are you currently unemployed and looking for a job?: I choose not to answer this question Are you interested in more education?: I choose not to answer this question Please select the resources that you would like help with: None Currently or been in a relationship where the following occur: No concerns reported THRIVE Score: 2 AUDIT C Alcohol Use Questionnaire (AUDIT-C) 1. How often do you have a drink containing alcohol?: Never Total Score: 0 ELIO-7 AMB Questionnaire ELIO-7 Date ELIO - 7 assessed: 07/22/24 Feeling nervous, anxious, or on edge: 1 = Several days Not being able to stop or control worryin = Not at all Worrying too much about different things: 0 = Not at all Trouble relaxin = Several days Being so restless that it is hard to sit still: 1 = Several days Becoming easily annoyed or irritable: 0 = Not at all Feeling afraid as if something awful might happen: 0 = Not at all Total ELIO-7 score (0-4 normal; 5-9 mild; 10-14 moderate; 15-21 severe): 3 Source: Developed by Drs. Daniel Leroy, Zuly Joel, Junior Kimball and colleagues, with an educational handy from [employer]. ELIO-7 Assessment Billing ELIO-7 Assessment Tool: ELIO-7 Assessment 46247 Review of Systems Const All systems reviewed & are unremarkable except as noted in HPI and below Eyes Reports no additional complaints, Denies change in vision and Denies other visual disturbances Card Denies chest pain at rest, Denies chest pain with activity, Denies edema, Denies irregular heart rhythm, Denies claudication, Denies dyspnea, Denies dyspnea on exertion, Denies orthopnea, Denies paroxysmal nocturnal dyspnea and Denies slow heart rate Resp Denies cough, Denies dyspnea and Denies dyspnea on exertion GI Denies abdominal pain, Denies change in bowel habits, Denies excessive flatus, Denies nausea and Denies vomiting Denies urinary incontinence, Denies urinary hesitancy and Denies urinary urgency Neuro Denies lack of coordination Physical exam (Primary Care) Vital Signs: Last Vital Signs BP 132/86 07/22/24 10:15 BMI result Body Mass Index 29.9 Tobacco/Smoking Status: Tobacco use Status Tobacco use date assessed 07/22/24 07/22/24 10:20 Patient Tobacco Use Status Never used Tobacco 07/22/24 10:20 e-Cigarette/Vaping Use Never Used 07/22/24 10:20 PHQ-9: PHQ-9 Score PHQ-9: Total score 3 07/22/24 10:20 Depression Screening Interpretation: Positive Depression Screening Follow-up: Existing condition and Follow-up Visit Requested Thrive Assessment: Date of Thrive Assessment Date Thrive assessed 07/22/24 07/22/24 10:20 Currently or been in a relationship where the following occur: No concerns reported Resp Effort & Inspection: normal respiratory effort Auscultation: clear to auscultation bilaterally Cardio Jugular venous distension: no JVD Rate: regular rate Rhythm: regular rhythm Heart sounds: S1 normal heart sound present and S2 normal heart sound present Extrem General: Yes full ROM Coding Level of Care Code Est Pt Level 4 (95821) Complex EM visit Add On G2211 Diagnoses Benign essential hypertension I10 Restless leg syndrome G25.81 Severe persistent asthma J45.50 Gastroesophageal reflux disease, unspecified whether esophagitis present K21.9 Esophagitis presence: esophagitis presence not specified Additional Codes PHQ-9 - 77880 - PHQ-9 Billing: Yes ([id number]) ELIO-7 Assessment Billing - ELIO-7 Assessment Tool: ELIO-7 Assessment 99173 ([id number]) Time Spent (min) 22 Assessment & Plan Assessment & Plan (1) Benign essential hypertension: Code(s): I10 - Essential (primary) hypertension Category: Medical Plan: Increase hydrochlorothiazide to 25 mg once a day. Change amlodipine to twice a day. Continue blood pressure monitoring at home at least 3 times a week. Follow a low-salt diet. (2) Restless leg syndrome: Code(s): G25.81 - Restless legs syndrome Category: Medical Plan: Continue ropinirole. (3) Severe persistent asthma: Code(s): J45.50 - Severe persistent asthma, uncomplicated Category: Medical Plan: Continue Breo. Use rescue inhaler as needed. Follow-up with pulmonology. Avoid allergens. (4) GERD (gastroesophageal reflux disease): Comment: Persistent acid reflux despite PPI. She does not smoke or drink alcohol. We will schedule gastric emptying study. EGD with biopsies reveals no H pylori. Code(s): K21.9 - Gastro-esophageal reflux disease without esophagitis Category: Medical Qualifiers: Esophagitis presence: esophagitis presence not specified Qualified Code(s): K21.9 - Gastro-esophageal reflux disease without esophagitis Plan: Continue PPIs. Avoid acidic foods. Medications: New hydrochlorothiazide 25 mg PO DAILY 90 days 90 tabs 1RF Changed From amlodipine 5 mg PO DAILY 90 days 90 tabs 1RF To amlodipine 5 mg PO BID 90 days 180 tabs 1RF Discontinued hydrochlorothiazide Discontinued Reason: Patient Completed Course 12.5 mg PO DAILY 90 days 90 tabs 3RF
== END 2024-07-22 10:33 | disposition home or self-care (01) ==
LOC: HO.HMCH 10:12
PROVIDERS: PCP Internal Medicine; Visit Provider Internal Medicine
DX: I10 Essential (primary) hypertension (principal); G25.81 Restless legs syndrome; J45.50 Severe persistent asthma, uncomplicated; K21.9 Gastro-esophageal reflux disease without esophagitis

== ENCOUNTER 2024-07-26 20:02 | Emergency (ER) | payer OTHER, SELFPAY ==
[2024-07-26 20:18] VITALS: BP 192/106; PULSE 127; RESP 20; TEMP 36.6; O2SAT 99; BMI 30.1
--- NOTE | 2024-07-26 20:21 | ECG_ITS ---
Test Reason : SOB Blood Pressure : */* mmHG Vent. Rate : 114 BPM Atrial Rate : 114 BPM P-R Int : 152 ms QRS Dur : 72 ms QT Int : 322 ms P-R-T Axes : 65 13 3 degrees QTcB Int : 443 ms Sinus tachycardia Nonspecific T wave abnormality Abnormal ECG When compared with ECG of 03-Sep-2021 10:28, Vent. rate has increased by 39 bpm Nonspecific T wave abnormality, worse in Inferior leads Nonspecific T wave abnormality now evident in Lateral leads Referred By: Lyn Randolph Electronically Signed By: DONATO MUNIZ
--- NOTE | 2024-07-26 20:23 | ED_ITS ---
HPI - General Adult General Chief complaint: General Medical Stated complaint: swollen from thigh down suffers frm high pressure Time Seen by Provider: 07/26/24 21:15 Source: patient Mode of arrival: ambulatory Limitations: no limitations History of Present Illness ED Provider: HPI narrative: Patient no significant past medical history comes here for 3 hours swelling and redness of the both legs after coming to the ER swelling has decreased redness and swelling almost gone no history of heart failure no chest pain Related Data Home Medications ?Medication ?Instructions ?Recorded ?Confirmed gabapentin 300 mg capsule 300 mg PO BID 08/03/21 07/22/24 Previous Rx's ?Medication ?Instructions ?Recorded acetaminophen 325 mg capsule 325 mg PO QID PRN pain #28 caps 05/24/20 meloxicam 15 mg tablet 15 mg PO DAILY PRN pain 90 days 03/31/21 #90 tabs blood pressure monitor #1 ea 01/27/22 nebulizers (Aeroneb Go Nebulizer) #1 ea 01/27/22 meclizine 25 mg tablet 25 mg PO TID PRN dizziness 30 days 01/06/23 #90 tabs albuterol sulfate 2.5 mg/3 mL 2.5 mg (3 mL) inhalation Q6H 30 03/27/23 (0.083 %) solution for nebulization days #360 mL doxycycline hyclate 100 mg capsule 100 mg PO BID 10 days #20 caps 06/19/23 ipratropium 0.5 mg-albuterol 3 mg 3 ml inhalation Q4-6H PRN wheezing 08/16/23 (2.5 mg base)/3 mL nebulization 30 days #180 mL soln epinephrine 0.3 mg/0.3 mL 0.3 mg (0.3 mL) IM DIRECTED for 08/27/23 injection, auto-injector anaphylaxis 30 days #9 caps omeprazole 20 mg capsule,delayed 20 mg PO DAILY #90 caps 12/18/23 release albuterol sulfate 90 mcg/actuation 2 puff inhalation Q6H PRN 02/25/24 aerosol inhaler shortness of breath or wheezing 30 days #8.5 grams montelukast 10 mg tablet 10 mg PO BEDTIME #30 tabs 04/04/24 fluticasone furoate 200 1 inh inhalation DAILY 30 days #1 04/29/24 mcg-vilanterol 25 mcg/dose ea inhalation powder (Breo Ellipta) ropinirole 0.25 mg tablet 0.25 mg PO BEDTIME #30 tabs 05/28/24 amlodipine 5 mg tablet 5 mg PO BID 90 days #180 tabs 07/22/24 hydrochlorothiazide 25 mg tablet 25 mg PO DAILY 90 days #90 tabs 07/22/24 Allergies Allergy/AdvReac Type Severity Reaction Status Date / Time mustard [MUSTARD*] Allergy Severe PT USES Verified 07/26/24 20:23 EPI PEN seafood Allergy Intermediate swollen Verified 07/26/24 20:23 throat Seasonal Allergies Allergy Intermediate itch eyes Verified 07/26/24 20:23 Review of Systems 2 Review of Systems: Yes all other systems are reviewed and are negative [facility] Past Medical History Medical History PRAVEENA (obstructive sleep apnea) Overweight (BMI 25.0-29.9) Benign essential hypertension Renal calculi Lumbar pain Transaminitis Essential hypertension DANELLE positive PAC (premature atrial contraction) Chronic fatigue Restless leg syndrome GERD (gastroesophageal reflux disease) Moderate asthma Polyarthralgia Vertigo Surgical History History of tubal ligation History of section Family History Family History Paternal Grandfather Colon cancer Paternal Aunt Breast cancer Father No problems noted. Mother No problems noted. Social History Social History Household Members: Spouse and Children Housing: Apartment Alcohol intake: never Patient Tobacco Use Status: Never used Tobacco Smoked in Last 30 Days: No e-Cigarette/Vaping Use: Never Used Second Hand Smoke Exposure: No Use of substances other than those prescribed or required for medical reasons: No Advance Directives: No Advance Directives Information Provided: No Do you have a plan to hurt others: No Plan Patient : No service: No Current occupational status: employed Current occupational exposures/hazards: No Gender identity: Female Cognitive needs: No Hearing needs: No Vision needs: No Physical Exam ED Vital Signs: Vital Signs - 24 hr 07/26/24 20:18 07/26/24 20:47 07/26/24 21:16 Temperature 97.8 F 98.1 F 98.4 F Pulse Rate 127 H 117 H 110 H Respiratory Rate 20 20 20 Blood Pressure 192/106 H 195/119 H 150/81 H Pulse Oximetry 99 99 98 Oxygen Delivery Method Room Air Room Air Room Air BMI result Body Mass Index 30.1 Appearance: Alert. Oriented X3. No acute distress. Eyes: PERRLA, No Nystagmus ENT: Pharynx normal. Oral Mucosa moist Neck: Normal inspection. Neck supple. CVS: Normal heart rate and rhythm. Pulses normal. Respiratory: No respiratory distress. Equal air entry bilateral, no wheezing/rales/rhonchi Abdomen: Soft and nontender. Bowel sounds are present, no mass palpable, no CVA tenderness Skin: Skin warm and dry. Normal skin color. Normal skin turgor. Extremities: No lower extremity edema. No calf tenderness mild tenderness of the knee joint Neuro: Oriented X 3. No motor deficit. No sensory deficit.No cerebellar signs , cranial nerves II-XII intact Course Course Course Narrative: 07/26/242022 ADITYA Kaur This is a Rapid Medical Examination (RME) performed by Pablo Randolph PA-C in triage. Full HPI, ROS, assessment and treatment plan per primary provider in the Main ED. 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 No new meds. No new soaps, lotions, detergents. Did not eat anything abnormal prior to reaction. PE/vitals: tachycardic, hypertensive, nonblanchable erythema to b/l lower legs, no edema. Plan: labs, ekg Medical Decision Making Medical Decision Making MDM Narrative: Patient with nonspecific leg swelling and erythema on examination there was no swelling or erythema noticed labs are stable patient advised to keep the legs elevated follow with PCP as needed Lab Data MDM Lab Attestation statement: I reviewed the patient's lab results. 07/26/24 20:28 07/26/24 20:28 Labs: Lab Results 07/26/24 Range/Units 20:28 WBC 10.1 (4.8-10.8) X10*3/uL RBC 4.44 (4.20-5.50) X10*6/uL Hgb 13.6 (12.0-16.0) g/dl Hct 38.2 (37.0-47.0) % MCV 86.0 (80.0-98.0) fL MCH 30.6 (27.0-33.0) pg MCHC 35.6 H (31.0-35.0) g/dl RDW 12.3 (11.0-16.0) % Plt Count 260 (160-400) X10*3/uL MPV 9.8 (9.4-12.3) fL Immature Gran % (Auto) 0.3 (0.0-0.4) % Neut % (Auto) 60.3 (45-73) % Lymph % (Auto) 30.1 (20-40) % [place] % (Auto) 6.8 (2-11) % Eos % (Auto) 1.9 (0-4) % Baso % (Auto) 0.6 (0-2) % Lymph # (Auto) 3.0 (1.2-4.9) X10*3/uL [place] # (Auto) 0.7 (0.1-1.2) X10*3/uL Eos # (Auto) 0.2 (0.0-0.4) X10*3/uL Baso # (Auto) 0.1 (0.0-0.2) X10*3/uL Abs Immat Gran (auto) 0.03 (0.00-0.03) X10*3/uL Absolute Neuts (auto) 6.1 (2.0-8.3) x10*3/uL Absolute Nucleated RBC 0.000 (0.0-0.012) X10*3/uL Nucleated RBC % (auto) 0.0 (0.0-0.2) /100WBC Sodium 141 (135-145) mmol/L Potassium 3.4 (3.3-5.1) mmol/L Chloride 103 (96-108) mmol/L Carbon Dioxide 27 (22-29) mmol/L Anion Gap 14 (12-20) BUN 13 (9-16) mg/dL Creatinine 0.70 (0.5-1.4) mg/dL Estim Creat Clear Calc 88.6 Estimated GFR > 60 Random Glucose 107 (60-115) mg/dL Calcium 9.9 (8.4-10.2) mg/dL Magnesium 1.8 (1.6-2.6) mg/dL Total Bilirubin 0.4 (0.0-1.0) mg/dL AST 29 (5-31) U/L ALT 21 (0-31) U/L Alkaline Phosphatase 80 (39-117) U/L Troponin I High Sens < 2.7 (<3.5-17.0) ng/L B-Natriuretic Peptide < 10 (<100) pg/mL Total Protein 7.7 (6.5-8.0) g/dL Albumin 4.5 (3.5-5.0) g/dL Discharge Plan Discharge Clinical Impression: Leg edema Patient Disposition: Home, Self-Care Instructions: Leg Edema (ED) Additional Instructions: Keep your legs elevated Take Tylenol for joint pain if any Follow up with your PCP Prescriptions: No Action meloxicam 15 mg tablet 15 mg PO DAILY PRN (Reason: pain) 90 Days Qty: 90 0RF meclizine 25 mg tablet 25 mg PO TID PRN (Reason: dizziness) 30 Days Qty: 90 6RF albuterol sulfate 2.5 mg /3 mL (0.083 %) solution for nebulization 2.5 mg inhalation Q6H 30 Days Qty: 360 3RF epinephrine 0.3 mg/0.3 mL auto-injector 0.3 mg IM DIRECTED 30 Days Qty: 9 1RF omeprazole 20 mg capsule,delayed release(DR/EC) 20 mg PO DAILY Qty: 90 1RF albuterol sulfate 90 mcg/actuation HFA aerosol inhaler 2 puff inhalation Q6H PRN (Reason: shortness of breath or wheezing) 30 Days Qty: 8.5 6RF montelukast 10 mg tablet 10 mg PO BEDTIME Qty: 30 1RF fluticasone furoate-vilanterol [Breo Ellipta] 200-25 mcg/dose blister with device 1 inh inhalation DAILY 30 Days Qty: 1 6RF ropinirole 0.25 mg tablet 0.25 mg PO BEDTIME Qty: 30 2RF acetaminophen 325 mg capsule 325 mg PO QID PRN (Reason: pain) Qty: 28 0RF (DME) nebulizers [Aeroneb Go Nebulizer] Misc See Rx Instructions .Route Qty: 1 0RF Rx Instructions: As directed (DME) blood pressure monitor Kit See Rx Instructions .Route Qty: 1 0RF Rx Instructions: As directed doxycycline hyclate 100 mg capsule 100 mg PO BID 10 Days Qty: 20 0RF gabapentin 300 mg capsule 300 mg PO BID amlodipine 5 mg tablet 5 mg PO BID 90 Days Qty: 180 1RF hydrochlorothiazide 25 mg tablet 25 mg PO DAILY 90 Days Qty: 90 1RF ipratropium-albuterol 0.5 mg-3 mg(2.5 mg base)/3 mL solution for nebulization 3 ml inhalation Q4-6H PRN (Reason: wheezing) 30 Days Qty: 180 6RF Print Language: Canadian
[2024-07-26 20:35] LABS: MANUAL DIFF FLAG NO
[2024-07-26 20:36] LABS: Basophils Absolute Auto 0.1 X10*3/uL (0.0-0.2); Basophils Percent Auto 0.6 % (0-2); Eosinophils Absolute Auto 0.2 X10*3/uL (0.0-0.4); Eosinophils Percent Auto 1.9 % (0-4); Hematocrit 38.2 % (37.0-47.0); Hemoglobin 13.6 g/dl (12.0-16.0); Imm Gran Abs Auto 0.03 X10*3/uL (0.00-0.03); Imm Gran Pct Auto 0.3 % (0.0-0.4); Lymphocytes Percent Auto 30.1 % (20-40); Mean Corpuscular HGB Conc 35.6 g/dl (31.0-35.0); Mean Corpuscular Hemoglobin 30.6 pg (27.0-33.0); Mean Platelet Volume 9.8 fL (9.4-12.3); Monocytes Absolute Auto 0.7 X10*3/uL (0.1-1.2); Monocytes Percent Auto 6.8 % (2-11); Neutrophils Absolute Auto 6.1 x10*3/uL (2.0-8.3); Neutrophils Percent Auto 60.3 % (45-73); Platelet Count 260 X10*3/uL (160-400); Red Blood Count 4.44 X10*6/uL (4.20-5.50); Red Cell Distribution Width 12.3 % (11.0-16.0); White Blood Count 10.1 X10*3/uL (4.8-10.8)
[2024-07-26 20:47] VITALS: BP 195/119; PULSE 117; RESP 20; TEMP 36.7; O2SAT 99
[2024-07-26 20:51] LABS: Alanine Aminotransferase 21 U/L (0-31); Albumin Level 4.5 g/dL (3.5-5.0); Alkaline Phosphatase 80 U/L (39-117); Anion Gap 14 (12-20); Aspartate Amino Transferase 29 U/L (5-31); Bilirubin Total 0.4 mg/dL (0.0-1.0); Blood Urea Nitrogen 13 mg/dL (9-16); Calcium 9.9 mg/dL (8.4-10.2); Carbon Dioxide 27 mmol/L (22-29); Chloride 103 mmol/L (96-108); Creatinine Clr Calc Pharmacy 88.6; Estimated Glomerular Filt Rate > 60; Glucose Random 107 mg/dL (60-115); Magnesium 1.8 mg/dL (1.6-2.6); Potassium 3.4 mmol/L (3.3-5.1); Sodium 141 mmol/L (135-145); Total Protein 7.7 g/dL (6.5-8.0)
--- NOTE | 2024-07-26 20:51 | PC.NURSE ---
0pt a&ox, respirations even and unlabored. pt reports onset of lower extremity swelling, redness with dots starting today. pt also reports left sided cp radiating into neck. pt noted to be hypertensive, reports she takes medications at home. non pitting edema of the lower extremities.
[2024-07-26 20:56] LABS: B Type Natriuretic Peptide < 10 pg/mL (<100)
[2024-07-26 20:59] LABS: Troponin-I High Sensitivity < 2.7 ng/L (<3.5-17.0)
[2024-07-26 21:16] VITALS: BP 150/81; PULSE 110; RESP 20; TEMP 36.9; O2SAT 98
--- NOTE | 2024-07-26 21:20 | MHC.EDTECH ---
This pct just assumed care of Patient ,vitals taken ,Patient resting quietly in bed ,Patient daughter at bedside ,Patient daughter at bedside ,Call alfonso within Pt reach .
[2024-07-26 22:18] VITALS: BP 150/81; PULSE 110; RESP 20; TEMP 36.9; O2SAT 98
== END 2024-07-26 22:18 | disposition home or self-care (01) ==
PROVIDERS: Physician Assistant Medical; Emergency Provider Internal Medicine; PCP Internal Medicine
DX: R60.0 Localized edema (principal); R06.02 Shortness of breath; R00.0 Tachycardia, unspecified; Z79.899 Other long term (current) drug therapy
CPT/HCPCS: 36415; 80053; 83735; 83880; 84484; 85025; 93005; 99283; 99285

== ENCOUNTER → 2024-07-26 20:21 | Outpatient (BNV) | payer OTHER, SELFPAY | PROVIDERS: Emergency Provider Internal Medicine; PCP Internal Medicine; Visit Provider Internal Medicine | DX: R00.0 Tachycardia, unspecified (principal) | CPT/HCPCS: 93010 ==

== ENCOUNTER 2024-08-13 08:11 | Outpatient (REF) | payer OTHER, SELFPAY ==
[2024-08-13 09:34] LABS: Cholesterol 188 mg/dL (<200); HDL Cholesterol 40 mg/dL (>40); LDL Cholesterol Calculated 123 mg/dL (<100); Triglycerides 127 mg/dL (<150)
== END 2024-08-13 08:12 | disposition home or self-care (01) ==
LOC: HO.LAB 08:11
PROVIDERS: PCP Internal Medicine; Visit Provider Internal Medicine
DX: E78.5 Hyperlipidemia, unspecified (principal)
CPT/HCPCS: 36415; 80061

== ENCOUNTER 2024-08-16 08:14 | Outpatient (AMB) | payer OTHER, SELFPAY ==
--- NOTE | 2024-08-16 08:40 | A.OFFPC_ITS ---
Vital Signs 08/16/24 08:41 Height 5 ft Weight 151 lb 8 oz BMI 29.6 BP 124/68 Blood Pressure Location Lt brachial Position Sitting Pulse 97 Pulse Source Pulse Oximeter Temp 97.1 F Temp Source Temporal Artery Scan Pulse Oximetry (%) 99 Oxygen Delivery Method Room Air Intake Visit Reasons: [facility] [place] 07/26 High BP/swollen legs Intake Note: Patient is here to follow-up after a visit the emergency department at [facility] [place] on 07/26/24 Drafter Commercial Required: Yes Drafter Commercial Language: [employer] Supervisor Name: New ([id number]) Information Interpreted: non-clinical & clinical Thermometer Maker: Not Required per policy Accompanied by: Self / Same As Patient Allergies mustard (MUSTARD*) Allergy (Severe, Verified 08/16/24 08:41) PT USES EPI PEN seafood Allergy (Intermediate, Verified 08/16/24 08:41) swollen throat Seasonal Allergies Allergy (Intermediate, Verified 08/16/24 08:41) itch eyes Tobacco use date assessed: 08/16/24 Dental Screening Dental Screen Date: 07/22/24 HPI HPI Comments History of Present Illness Details 44 y/o Female patient who presents to e clinic today for EDF. She was admitted at [facility] [place] on 07/26 for an evaluation and treatment of B/L Lower extremit ies edema and Elevated BP. Pt has Hypertension and currently on medications. She takes HCTZ 25 mg and Amlodipine 5 mg BID. Today denies SOB, CP, Headaches or dizziness. [facility] Medical History (Updated 08/16/24 @ 09:12 by Libby Larson NP) Peripheral edema PRAVEENA (obstructive sleep apnea) Overweight (BMI 25.0-29.9) Benign essential hypertension Renal calculi Lumbar pain Transaminitis Essential hypertension DANELLE positive PAC (premature atrial contraction) Chronic fatigue Restless leg syndrome GERD (gastroesophageal reflux disease) Moderate asthma Polyarthralgia Vertigo Surgical History History of tubal ligation History of section Family History Paternal Grandfather Colon cancer Paternal Aunt Breast cancer Father No problems noted. Mother No problems noted. Social History Household Members: Spouse and Children Housing: Apartment Alcohol intake: never Patient Tobacco Use Status: Never used Tobacco e-Cigarette/Vaping Use: Never Used Second Hand Smoke Exposure: No service: No Current occupational status: employed Current occupational exposures/hazards: No Gender identity: Female Cognitive needs: No Hearing needs: No Vision needs: No Female Reproductive History Menstrual Age of Menarche: 11 Questionnaire Thrive Questionnaire Date Thrive assessed: 07/22/24 I am a: Patient What is your living situation today?: I have a steady place to live Within the past 12 months, did the food you bought not last and you didn't have the money to get more?: Sometimes True Within the past 12 months, did you worry whether your food would run out before you got money to buy more?: Sometimes True Do you have trouble paying for medicines?: No Do you have trouble getting transportation to medical appointments?: No Do you have trouble paying your heating and electricity bill?: I choose not to answer this question Do you have trouble taking care of your child, family member or friend?: No Do you have trouble with day-to-day activities such as bathing, preparing meals, shopping, managing finances, etc.?: No Are you currently unemployed and looking for a job?: I choose not to answer this question Are you interested in more education?: I choose not to answer this question Please select the resources that you would like help with: None Currently or been in a relationship where the following occur: No concerns reported THRIVE Score: 2 ELIO-7 AMB Questionnaire ELIO-7 Date ELIO - 7 assessed: 07/22/24 Source: Developed by Drs. Daniel Leroy, Zuly Joel, Junior Kimball and colleagues, with an educational handy from [employer]. Review of Systems Const All systems reviewed & are unremarkable except as noted in HPI and below Physical exam (Primary Care) Vital Signs: Last Vital Signs Temp 97.1 F 08/16/24 08:41 Pulse 97 08/16/24 08:41 BP 124/68 08/16/24 08:41 Pulse Ox 99 08/16/24 08:41 Oxygen Delivery Method Room Air 08/16/24 08:41 BMI result Body Mass Index 29.6 Tobacco/Smoking Status: Tobacco use Status Tobacco use date assessed 08/16/24 08/16/24 08:49 Patient Tobacco Use Status Never used Tobacco 08/16/24 08:49 e-Cigarette/Vaping Use Never Used 08/16/24 08:49 Thrive Assessment: Date of Thrive Assessment Date Thrive assessed 07/22/24 08/16/24 08:49 Currently or been in a relationship where the following occur: No concerns reported Const General: no acute distress Orientation/consciousness: patient oriented x3 Resp Effort & Inspection: normal respiratory effort and able to speak in complete sentences Cardio Heart sounds: S1 normal heart sound present and S2 normal heart sound present Neuro General: patient oriented x3, gait normal and moves all extremities Extrem Right lower extremity: lower leg Details: normal to inspection and non-pitting edema Details: 1+; no erythema and no tenderness Left lower extremity: lower leg Details: non-pitting edema Details: 1+; no erythema and no tenderness Psych Speech and movement: Normal speech and movement present Coding Level of Care Code Est Pt Level 4 (04086) Diagnoses Benign essential hypertension I10 Peripheral edema R60.0 Time Spent (min) 20 Assessment & Plan Assessment & Plan (1) Benign essential hypertension: Code(s): I10 - Essential (primary) hypertension Category: Medical Plan: Continue on current regiment. (2) Peripheral edema: Code(s): R60.0 - Localized edema Category: Medical Plan: Ordered Compression Stockings Advised to elevate her LE Avoid High Salt foods Medications: New compr.stocking,knee,long,x-lrg As directed 2 ea 0RF B/L LE EDEMA I10 - Essential (primary) hypertension, R60.0 - Localized edema Discontinued acetaminophen Discontinued Reason: Patient Completed Course 325 mg PO QID PRN 28 caps 0RF pain doxycycline hyclate Discontinued Reason: Patient Completed Course 100 mg PO BID 10 days 20 caps 0RF
[2024-08-16 08:41] VITALS: BP 124/68; PULSE 97; TEMP 36.2; O2SAT 99; BMI 29.6
== END 2024-08-16 10:31 | disposition home or self-care (01) ==
LOC: HO.HMCH 08:15
PROVIDERS: PCP Internal Medicine; Visit Provider Nurse Practitioner Family
DX: I10 Essential (primary) hypertension (principal); R60.0 Localized edema

== ENCOUNTER → 2024-08-16 08:14 | Outpatient (BNVA) | payer OTHER, SELFPAY | PROVIDERS: PCP Internal Medicine; Visit Provider Nurse Practitioner Family | DX: I10 Essential (primary) hypertension (principal); R60.0 Localized edema | CPT/HCPCS: 99212 ==

== ENCOUNTER 2024-11-28 10:39 | Outpatient (AMB) | payer OTHER, SELFPAY ==
[2024-11-28 10:43] VITALS: BP 132/78; PULSE 93; RESP 18; TEMP 36.3; O2SAT 97; BMI 30.1
--- NOTE | 2024-11-28 10:43 | A.OFFPC_ITS ---
Vital Signs 11/28/24 10:43 Height 5 ft Weight 154 lb 2 oz BMI 30.1 BP 132/78 Blood Pressure Location Lt brachial Position Sitting Respiration 18 Pulse 93 Pulse Source Pulse Oximeter Temp 97.3 F Temp Source Temporal Artery Scan Pulse Oximetry (%) 97 Oxygen Delivery Method Room Air Intake Visit Reasons: 4mth f./u Faculty Instructor Required: No Accompanied by: Self / Same As Patient Allergies mustard (MUSTARD*) Allergy (Severe, Verified 11/28/24 11:02) PT USES EPI PEN seafood Allergy (Intermediate, Verified 11/28/24 11:02) swollen throat Seasonal Allergies Allergy (Intermediate, Verified 11/28/24 11:02) itch eyes Medication List - Last Reconciled 11/28/24 by Nhung Trevino MD albuterol sulfate 2.5 mg (3 mL) inhalation Q6H 30 days albuterol sulfate 90 mcg/actuation 2 puffs inhalation Q6H PRN 30 days amlodipine 5 mg PO BID 90 days blood pressure monitor As directed compr.stocking,knee,long,x-lrg As directed epinephrine 0.3 mg (0.3 mL) IM DIRECTED 30 days fluticasone furoate-vilanterol 200-25 mcg/dose (Breo Ellipta) 1 inh inhalation DAILY 30 days hydrochlorothiazide 25 mg PO DAILY 90 days ipratropium-albuterol 0.5 mg-3 mg(2.5 mg base)/3 mL 3 mL inhalation Q4-6H PRN 30 days meclizine 25 mg PO TID PRN 30 days meloxicam 15 mg PO DAILY PRN 90 days montelukast 10 mg PO BEDTIME nebulizers (Aeroneb Go Nebulizer) As directed omeprazole 20 mg PO DAILY ropinirole 0.25 mg PO BEDTIME Tobacco use date assessed: 11/28/24 Dental Screening Dental Screen Date: 11/28/24 Did you have a dental visit in the last 12 months?: No Did you have a dental problem in the last 6 months where you did not have access to dental care?: No Was dental information given to patient?: No HPI HPI Comments History of Present Illness Details The patient is a 44-year-old female presenting for hypertension management and evaluation of musculoskeletal pain. She has a history of hypertension, currently managed with amlodipine 5 mg twice daily and hydrochlorothiazide 25 mg. Her blood pressure control is reportedly excellent. The patient reports allergies to mustard, seafood, and seasonal allergens, for which she carries an Epipen. She also has a history of asthma, managed with a bronchodilator inhaler. She experiences vertigo, for which she uses meclizine as needed. The patient describes chronic back pain, primarily affecting the left side, extending from the hip downwards, and occasionally involving the shoulder. The pain is described as intense and persistent, interfering with sleep. She reports symptoms suggestive of sciatica, including numbness and tingling in the arms when lying on her side. The patient is also being treated for restless leg syndrome with ropinirole and gastroesophageal reflux disease with omeprazole. [facility] Medical History (Updated 11/28/24 @ 11:15 by Nhung Trevino MD) Peripheral edema PRAVEENA (obstructive sleep apnea) Overweight (BMI 25.0-29.9) Benign essential hypertension Renal calculi Lumbar pain Transaminitis Essential hypertension NHUNG positive PAC (premature atrial contraction) Chronic fatigue Restless leg syndrome GERD (gastroesophageal reflux disease) Moderate asthma Polyarthralgia Vertigo Surgical History History of tubal ligation History of section Family History Paternal Grandfather Colon cancer Paternal Aunt Breast cancer Father No problems noted. Mother No problems noted. Social History Household Members: Spouse and Children Housing: Apartment Alcohol intake: never Patient Tobacco Use Status: Never used Tobacco e-Cigarette/Vaping Use: Never Used Second Hand Smoke Exposure: No service: No Current occupational status: employed Current occupational exposures/hazards: No Gender identity: Female Cognitive needs: No Hearing needs: No Vision needs: No Female Reproductive History Menstrual Age of Menarche: 11 Questionnaire Thrive Questionnaire Date Thrive assessed: 07/22/24 I am a: Patient What is your living situation today?: I have a steady place to live Within the past 12 months, did the food you bought not last and you didn't have the money to get more?: Sometimes True Within the past 12 months, did you worry whether your food would run out before you got money to buy more?: Sometimes True Do you have trouble paying for medicines?: No Do you have trouble getting transportation to medical appointments?: No Do you have trouble paying your heating and electricity bill?: I choose not to answer this question Do you have trouble taking care of your child, family member or friend?: No Do you have trouble with day-to-day activities such as bathing, preparing meals, shopping, managing finances, etc.?: No Are you currently unemployed and looking for a job?: I choose not to answer this question Are you interested in more education?: I choose not to answer this question Please select the resources that you would like help with: None Currently or been in a relationship where the following occur: No concerns reported THRIVE Score: 2 ELIO-7 AMB Questionnaire ELIO-7 Date ELIO - 7 assessed: 07/22/24 Source: Developed by Drs. Daniel Leroy, Zuly Joel, Junior Kimball and colleagues, with an educational handy from [employer]. Review of Systems Const All systems reviewed & are unremarkable except as noted in HPI and below Card Denies chest pain at rest, Denies chest pain with activity, Denies edema, Denies irregular heart rhythm, Denies claudication, Denies dyspnea, Denies dyspnea on exertion, Denies orthopnea, Denies paroxysmal nocturnal dyspnea and Denies slow heart rate Resp Denies cough, Denies dyspnea and Denies dyspnea on exertion Physical exam (Primary Care) Vital Signs: Last Vital Signs Temp 97.3 F 11/28/24 10:43 Pulse 93 11/28/24 10:43 Resp 18 11/28/24 10:43 BP 132/78 11/28/24 10:43 Pulse Ox 97 11/28/24 10:43 Oxygen Delivery Method Room Air 11/28/24 10:43 BMI result Body Mass Index 30.1 BMI Assessment/Plan discussion: High BMI High, discussed plan: lifestyle, weight reduction, dietary and physical activity Tobacco/Smoking Status: Tobacco use Status Tobacco use date assessed 11/28/24 11/28/24 10:46 Patient Tobacco Use Status Never used Tobacco 11/28/24 10:46 e-Cigarette/Vaping Use Never Used 11/28/24 10:46 Thrive Assessment: Date of Thrive Assessment Date Thrive assessed 07/22/24 11/28/24 10:46 Currently or been in a relationship where the following occur: No concerns reported Resp Effort & Inspection: normal respiratory effort Auscultation: clear to auscultation bilaterally Cardio Jugular venous distension: no JVD Rate: regular rate Rhythm: regular rhythm Heart sounds: S1 normal heart sound present and S2 normal heart sound present Extrem General: Yes full ROM Coding Level of Care Code Est Pt Level 4 (63282) Complex EM visit Add On G2211 Diagnoses Essential hypertension I10 Lumbar pain M54.5 Left shoulder pain M25.512 Left hip pain M25.552 Paresthesia of hand, bilateral R20.2 Restless leg syndrome G25.81 Moderate persistent asthma without complication J45.40 Asthma persistence: persistent Asthma complication type: uncomplicated Time Spent (min) 22 Assessment & Plan Assessment & Plan (1) Essential hypertension: Code(s): I10 - Essential (primary) hypertension Category: Medical (2) Lumbar pain: Code(s): M54.5 - Low back pain Category: Medical (3) Left shoulder pain: Code(s): M25.512 - Pain in left shoulder Category: Medical (4) Left hip pain: Code(s): M25.552 - Pain in left hip Category: Medical (5) Paresthesia of hand, bilateral: Code(s): R20.2 - Paresthesia of skin Category: Medical (6) Restless leg syndrome: Code(s): G25.81 - Restless legs syndrome Category: Medical (7) Moderate asthma: Code(s): J45.909 - Unspecified asthma, uncomplicated Category: Medical Qualifiers: Asthma persistence: persistent Asthma complication type: uncomplicated Qualified Code(s): J45.40 - Moderate persistent asthma, uncomplicated Plan Plan Patient was informed and verbally consented to the use of an ambient scribe for clinic note documentation during this visit. 1. Hypertension The patient's hypertension is well-controlled with amlodipine and hydrochlorothiazide. 2. Back Pain The patient reports chronic back pain, primarily on the left side, and is experiencing significant discomfort. A prescription for meloxicam will be provided to manage the pain. 3. Sciatica The patient exhibits symptoms suggestive of sciatica, including numbness and tingling in the arms. A nerve conduction study of both arms is planned to further evaluate these symptoms. 4. Restless Leg Syndrome The patient is currently being treated with ropinirole for restless leg syndrome. 5. Gastroesophageal Reflux Disease The patient is managing gastroesophageal reflux disease with omeprazole. Orders: Orders XR lumbar spine 2-3V Today M54.5 - Low back pain XR shoulder LT min 2V Today M25.512 - Pain in left shoulder XR hip LT min 2V Today M25.552 - Pain in left hip NE electromyogram (EMG) Today R20.2 - Paresthesia of skin NE nerve conduction velocity Today R20.2 - Paresthesia of skin Referrals Pain Management Referral M54.5 - Low back pain Medications: Refilled meloxicam 15 mg PO DAILY PRN 90 tabs 0RF pain 90 days
== END 2024-11-28 11:13 | disposition home or self-care (01) ==
LOC: HO.HMCH 10:40
PROVIDERS: PCP Internal Medicine; Visit Provider Internal Medicine
DX: I10 Essential (primary) hypertension (principal); M54.50 Low back pain, unspecified; M25.512 Pain in left shoulder; M25.552 Pain in left hip; R20.2 Paresthesia of skin; G25.81 Restless legs syndrome; J45.40 Moderate persistent asthma, uncomplicated

== ENCOUNTER → 2024-11-28 10:39 | Outpatient (BNVA) | payer OTHER, SELFPAY | PROVIDERS: PCP Internal Medicine; Visit Provider Internal Medicine | DX: I10 Essential (primary) hypertension (principal); M54.50 Low back pain, unspecified; M25.512 Pain in left shoulder; M25.552 Pain in left hip; R20.2 Paresthesia of skin; G25.81 Restless legs syndrome; J45.40 Moderate persistent asthma, uncomplicated; K21.9 Gastro-esophageal reflux disease without esophagitis; Z79.899 Other long term (current) drug therapy | CPT/HCPCS: 99212 ==

== ENCOUNTER 2024-12-26 10:10 | Outpatient (REF) | payer OTHER, SELFPAY ==
--- NOTE | ~2024-12-26 | XR_ITS ---
EXAMINATION: XR SHOULDER 2 OR MORE VIEWS LEFT HISTORY: M25.512 - Pain in left shoulder COMPARISON: Comparison is made with the prior examination dated 08/16/2016. FINDINGS: Four views of the left shoulder are submitted. Osseous mineralization is normal. There is no fracture or dislocation. The glenohumeral and acromioclavicular joint spaces are preserved. The soft tissues are unremarkable. XR/XR shoulder LT min 2V IMPRESSION: Unremarkable examination of the left shoulder. Electronically signed by: Daniel Sen MD 12/26/2024 10:38 AM [facility]
--- NOTE | ~2024-12-26 | XR_ITS ---
EXAMINATION: XR LUMBOSACRAL SPINE CLINICAL INFORMATION: M54.5 - Low back pain COMPARISON: MRI lumbar spine 04/21/2017 TECHNIQUE: Three views of the lumbosacral spine. FINDINGS: There is normal lumbar lordosis. The vertebral heights and alignment appears normal. A limbus L2 vertebra is noted . There is mild ventral spondylosis throughout lumbar spine. No acute fracture, lytic or sclerotic process seen. The paravertebral soft tissues are normal. XR/XR lumbar spine 2-3V IMPRESSION: Normal lumbar lordosis without any visible acute fracture, dislocation or subluxation. No change in the L2 limbus vertebra compared to previous study 08/16/2016 Electronically signed by: John Wood MD 12/26/2024 10:44 AM [facility]
--- NOTE | ~2024-12-26 | XR_ITS ---
EXAMINATION: XR HIP, LEFT CLINICAL INFORMATION: M25.552 - Pain in left hip COMPARISON: None available. TECHNIQUE: Two views of the left hip. FINDINGS: No fracture, dislocation, or suspicious bone lesion. There is normal alignment. Normal femoral head contour without evidence of AVN. Normal acetabular coverage. There is minimal osteoarthritis present with very mild superolateral acetabular spurring. There are tiny subcapital osteophytes. The joint space is largely preserved. The left SI joint and hemipelvis appear normal. There is no soft tissue abnormality. XR/XR hip LT min 2V IMPRESSION: 1. No acute bony or soft tissue abnormality of the left hip. There is very mild osteoarthrosis. Electronically signed by: Zacarias Buck MD 12/26/2024 10:35 AM [facility] [place]
== END 2024-12-26 10:11 | disposition home or self-care (01) ==
LOC: HO.XRAY 10:10
PROVIDERS: PCP Internal Medicine; Visit Provider Internal Medicine
DX: M54.50 Low back pain, unspecified (principal); M25.512 Pain in left shoulder; M25.552 Pain in left hip
CPT/HCPCS: 72100; 73030; 73502

== ENCOUNTER → 2024-12-26 10:15 | Outpatient (BNV) | payer OTHER, SELFPAY | PROVIDERS: PCP Internal Medicine; Visit Provider Radiology Diagnostic Radiology | DX: M54.50 Low back pain, unspecified (principal); M16.11 Unilateral primary osteoarthritis, right hip; M25.512 Pain in left shoulder | CPT/HCPCS: 72100; 73030; 73502 ==

== ENCOUNTER 2025-01-01 09:02 | Outpatient (REF) | payer OTHER, SELFPAY ==
--- NOTE | 2025-01-01 10:04 | EMG_ITS ---
Chief complaint:?R20.2 Paresthesia of skin Reason for referral: Bilateral hand numbness Referred by:? Nhung Trevino MD Procedure done: Bilateral upper extremities NCS/EMG Bilateral median and ulnar motor studies were performed. Bilateral median and ulnar mixed sensory studies, median and lateral antecubital brachial sensory studies and radial sensory studies were performed. Bilateral ortho sensory median and ulnar sensory studies were also performed. EMG was performed. Findings: No significant abnormality was noted. Impression: This is an unremarkable study with no evidence of entrapment neuropathy or a proximal lesion. [place] [id number] 2 extremities MTDD
== END 2025-01-01 09:03 | disposition home or self-care (01) ==
LOC: HO.NEURO 09:02
PROVIDERS: PCP Internal Medicine; Visit Provider Internal Medicine
DX: R20.2 Paresthesia of skin (principal); R20.0 Anesthesia of skin
CPT/HCPCS: 95886; 95913

== ENCOUNTER → 2025-01-01 10:04 | Outpatient (BNV) | payer OTHER, SELFPAY | PROVIDERS: PCP Internal Medicine; Visit Provider Psychiatry & Neurology Neurology | DX: R20.2 Paresthesia of skin (principal) | CPT/HCPCS: 95885; 95913 ==